=== PATIENT | male | born 1965 | race Caucasian/White ===

== ENCOUNTER 2019-11-25 08:56 | Emergency (ER) | payer BC, SELFPAY ==
--- NOTE | 2019-11-25 09:05 | ED.BACK ---
HPI - Back Pain/Injury General Chief Complaint: Back Pain/Injury Stated Complaint: Lower back strain Time Seen by Provider: 11/25/19 09:06 Source: patient and RN notes reviewed History of Present Illness HPI Narrative: Patient is a 54-year-old male who presents the urgent care with complaints of left-sided low back pain. Patient states that getting up from laying down or from sit to stand exacerbates the pain. Patient states that this past Tuesday he was walking his dog up the patio steps and noticed a slight tension and pull into the left low back. Patient states that since then he has not been able to get very comfortable. Patient states he has been taking ibuprofen with minimal relief. Also reports of using a heating pad which does help some. Patient denies of any known fall, trauma, past injury of the low back. No other acute complaints. Denies of any urinary issues. No acute distress noted. Patient aware of the plan of care. Some parts of this dictation were generated by voice recognition software and may contain typographical and/or grammatical inaccuracies. Related Data Home Medications Medication Instructions Recorded Confirmed atorvastatin [Lipitor] 40 mg PO HS 11/25/19 11/25/19 famotidine [Pepcid] 20 mg PO DAILY 11/25/19 11/25/19 insulin glargine [Lantus U-100 25 unit SUBCUT BID 11/25/19 11/25/19 Insulin] insulin lispro [Humalog U-100 15 unit SUBCUT TID 11/25/19 11/25/19 Insulin] lisinopril 10 mg PO BID 11/25/19 11/25/19 pramlintide [SymlinPen 120] 15 mcg SUBCUT ONCE 11/25/19 11/25/19 Allergies Allergy/AdvReac Type Severity Reaction Status Date / Time No Known Allergies Allergy Verified 11/25/19 09:09 Review of Systems Review of Systems: Narrative: CONSTITUTIONAL: Denies fever, chills, or sweats. EYES: Denies visual changes, redness, or discharge. ENT: Denies rhinorrhea, congestion, sore throat, or otalgia. CARDIOVASCULAR: Denies chest pain, palpitations, or edema. RESPIRATORY: Denies cough or dyspnea. GASTROINTESTINAL: Denies abdominal pain, nausea, vomiting, or diarrhea. GENITOURINARY: Denies dysuria or hematuria. SKIN: Denies rash or itching. MUSCULOSKELETAL: Reports of left low back pain radiating down the left leg NEUROLOGIC: Denies headache, numbness, or weakness. All other systems reviewed are negative, except as documented in HPI. PMFSH Comments At the time of my signature, I reviewed and agree with the nursing past medical, surgical, social, and family history. There is no relevant family history pertinent to the patient complaint. Exam Narrative: Exam Narrative: GENERAL: This is a well-nourished, well-developed patient, in no apparent distress. HEAD: normocephalic, atraumatic. EYES: PERRL. Sclera clear/white. Vision is grossly intact. EARS: External ears normal NOSE: External nose normal with no obvious nasal discharge, nares without redness, no rhinorrhea. THROAT: Mucous membranes moist NECK: Neck supple SKIN: warm, intact with no suspicious lesions or rash, good texture and turgor. NEURO: awake, alert, and oriented to person, place and time. There were no obvious focal neurologic abnormalities. EXTREMITIES: No clubbing, cyanosis, or edema. BACK: Mild to moderate left lumbar tenderness with positive left SLE. No crepitus Course Vital Signs Vital signs: Vital Signs Temperature 97.0 F L 11/25/19 09:06 Pulse Rate 84 11/25/19 09:06 Respiratory Rate 16 11/25/19 09:06 Blood Pressure 150/76 H 11/25/19 09:06 Pulse Oximetry 99 11/25/19 09:06 Temperature 97.0 F L 11/25/19 09:06 Pulse Rate 84 11/25/19 09:06 Respiratory Rate 16 11/25/19 09:06 Blood Pressure 150/76 H 11/25/19 09:06 Pulse Oximetry 99 11/25/19 09:06 Reviewed-patient is informed that they may have pre-hypertension or hypertension based on a blood pressure reading in the department. I recommend the patient call the primary care provider listed on their discharge instructions or a physician of
[2019-11-25 09:06] VITALS: BP 150/76; PULSE 84; RESP 16; TEMP 36.1; O2SAT 99
== END 2019-11-25 09:30 | disposition home or self-care (01) ==
PROVIDERS: Emergency Provider Nurse Practitioner Family
DX: M54.32 Sciatica, left side (principal); S39.012A Strain of muscle, fascia and tendon of lower back, initial encounter; X58.XXXA Exposure to other specified factors, initial encounter; E78.00 Pure hypercholesterolemia, unspecified; I10 Essential (primary) hypertension; K21.9 Gastro-esophageal reflux disease without esophagitis
CPT/HCPCS: 99213; G0463

== ENCOUNTER 2020-01-09 15:17 | Emergency (ER) | payer BC, SELFPAY ==
[2020-01-09 15:46] VITALS: BP 124/72; PULSE 88; RESP 16; TEMP 36.5; O2SAT 98
--- NOTE | 2020-01-09 15:54 | ED.GENADULT ---
HPI - General Adult General Chief complaint: Unspecified Stated complaint: Left jaw pain Time Seen by Provider: 01/09/20 15:54 Source: patient and RN notes reviewed Mode of arrival: ambulatory Limitations: no limitations History of Present Illness HPI narrative: 54 year old male who presents to [facility] with complaints of left jaw pain which radiates into his left ear and his temporal head region. Patient states that he gets these symptoms at least twice a year and feels also like his teeth and jaw are out of line and has some painful popping of his left jaw. Patient states that he has seen a TMJ specialist in [facility] in the past with no specific findings. Patient denies any trismus, able to open mouth fully on exam, no difficulty with dental pain or caries, no difficulty with swallowing, no Aldair angina or swelling of face noted. Patient denies any visual changes, no burning pain or any blistering lesions or rash, patient has strong bilateral temporal artery pulses. He denies any chest pain, pressure, nausea or vomiting diaphoresis or pain to left arm or back. Patient does admit to some sinus congestion and feeling stuffed up especially on the left maxillary area, has long history of Afrin nasal spray use. MD complaint: left jaw pain Onset (ago): week(s) (1) Location: head (left jaw) Severity: moderate Severity scale (1-10): 6 Quality: aching Pain Consistency: intermittent Relieving factors: none Exacerbating factors: none Associated symptoms: other (pain radiates to left ear and left temporal area) Treatments prior to arrival: NSAID Related Data Home Medications Medication Instructions Recorded Confirmed atorvastatin [Lipitor] 40 mg PO HS 11/25/19 01/09/20 dvmrmbyswg-eadljnrfzy-czv-cod 1 cap PO DAILY PRN 11/25/19 01/09/20 famotidine [Pepcid] 20 mg PO DAILY 11/25/19 01/09/20 insulin glargine [Lantus U-100 25 unit SUBCUT BID 11/25/19 01/09/20 Insulin] insulin lispro [Humalog U-100 15 unit SUBCUT TID 11/25/19 01/09/20 Insulin] lisinopril 10 mg PO BID 11/25/19 01/09/20 pramlintide [SymlinPen 120] 15 mcg SUBCUT ONCE 11/25/19 01/09/20 empagliflozin [Jardiance] 10 mg PO DAILY 01/09/20 01/09/20 Allergies Allergy/AdvReac Type Severity Reaction Status Date / Time No Known Allergies Allergy Verified 01/09/20 15:52 Review of Systems Review of Systems: Narrative: CONSTITUTIONAL: Denies fever, chills, or sweats. EYES: Denies visual changes, redness, or discharge. ENT: Denies rhinorrhea,positive sinus congestion,no sore throat, some left ear otalgia. CARDIOVASCULAR: Denies chest pain, palpitations, or edema. RESPIRATORY: Denies cough or dyspnea. GASTROINTESTINAL: Denies abdominal pain, nausea, vomiting, or diarrhea. GENITOURINARY: Denies dysuria or hematuria. SKIN: Denies rash or itching. MUSCULOSKELETAL: Denies back pain, joint pain, or myalgia. NEUROLOGIC: temporal headache, no numbness, or weakness. PSYCHIATRIC: Denies anxiety or depression. All systems reviewed & are unremarkable except as noted in HPI and below PMFSH Past Medical History Medical History (Updated 01/10/20 @ 00:00 by [facility]) Diabetes Hyperlipidemia Hypertension Migraines Surgical History Surgical History (Updated 01/09/20 @ 16:20 by Sole Stevens NP) H/O shoulder surgery Hx of cholecystectomy Family History Family History (Updated 01/09/20 @ 16:21 by Sole Stevens NP) Father Diabetes mellitus Mother Diabetes mellitus Social History Social History (Updated 01/09/20 @ 16:21 by Sole Stevens NP) Smoking status: Never smoker Alcohol intake: current Alcohol use details: rare Substance use: never Living arrangements: with family Gender identity (if verbalized by the patient): Male Comments At time of signature, agree with nursing past medical, surgical, social and family history. There is no relevant family history pertinent to the presenting complaint Exam Narrative: Exam Narrative: G
== END 2020-01-09 16:41 | disposition home or self-care (01) ==
PROVIDERS: Emergency Provider Registered Nurse
DX: R68.84 Jaw pain (principal); E11.9 Type 2 diabetes mellitus without complications; E78.5 Hyperlipidemia, unspecified; I10 Essential (primary) hypertension; K21.9 Gastro-esophageal reflux disease without esophagitis
CPT/HCPCS: 99213; G0463

== ENCOUNTER 2023-05-02 00:30 | Day surgery (SDC) | payer BC, SELFPAY ==
[2023-04-13 09:55] VITALS: BMI 26.4
--- NOTE | 2023-04-29 12:16 | SUR.PREOP ---
Patient called regarding upcoming procedure. Reviewed preop instructions, appointment times, and procedure prep.
--- NOTE | 2023-04-29 14:15 | PM.HPGS ---
History of Present Illness History of Present Illness Consent: Risks, benefits, and alternatives have been discussed and questions answered. Patient agrees to proceed with procedure. Chief complaint: neoplasm screening Narrative: Foreign Yang is a 58 year old male A long history of acid reflux disease, fatty liver, diabetes mellitus and prior cholecystectomy who has a history of polyps. Last colonoscopy was in 2018 or 2019. He had recently received a letter stating that it was time for follow-up colonoscopy . 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 Review of Systems Review of Systems: All systems reviewed & are unremarkable except as noted in HPI and below PMFSH Past Medical History Medical History Diabetes Fatty liver GERD (gastroesophageal reflux disease) Hyperlipidemia Hypertension Left shoulder pain Migraines Tendonitis of left rotator cuff Surgical History Surgical History H/O shoulder surgery Hx of cholecystectomy Family History Family History Father Diabetes mellitus Mother Diabetes mellitus Unknown Hypertension Heart disease Neuropathy Arthritis Cerebrovascular accident High cholesterol Social History Social History Social History: caffeine use Smoking status: Never smoker Alcohol intake: current Alcohol use details: rare Substance use: never Substance use type: does not use Living arrangements: with family Occupation/Education: occupation 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- [employer] Gender identity (if verbalized by the patient): Male Spiritual care concerns: No Meds Home Medications and Allergies Home Medications Medication Instructions Recorded Confirmed Type atorvastatin 40 mg tablet (Lipitor) 40 mg PO HS 11/25/19 05/02/23 History butalbital 50 mg-acetaminophen 325 1 cap PO DAILY PRN Headache 11/25/19 05/02/23 History mg-caffeine 40 mg-codeine 30 mg cap famotidine 20 mg tablet (Pepcid) 20 mg PO DAILY 11/25/19 05/02/23 History insulin glargine 100 unit/mL 25 unit subcut BID 11/25/19 05/02/23 History subcutaneous solution (Lantus U-100 Insulin) insulin lispro 100 unit/mL 15 unit subcut TID 11/25/19 05/02/23 History subcutaneous cartridge (Humalog U-100 Insulin) lisinopril 10 mg tablet 10 mg PO BID 11/25/19 05/02/23 History metformin 500 mg tablet 1,000 mg PO BID 02/22/23 05/02/23 History alprazolam 0.5 mg tablet 0.5 mg PO DAILY PRN Anxiety 04/04/23 05/02/23 History ferrous sulfate 325 mg (65 mg 325 mg PO DAILY 04/04/23 05/02/23 History iron) tablet tamsulosin 0.4 mg capsule 0.4 mg PO DAILY 04/04/23 05/02/23 History venlafaxine 225 mg tablet,extended 225 mg PO DAILY 04/04/23 05/02/23 History release 24 hr vctamoz-mlipgccydpjpz-wvybchwo 250 1 tablet PO Q4-6H PRN Migraine 04/13/23 05/02/23 History mg-250 mg-65 mg tablet (Excedrin Headache Migraine) mazuojy-envufukqt-dkyo 333 mg-133 1 tablet PO DAILY 04/13/23 05/02/23 History mg-8.3 mg tablet empagliflozin 25 mg tablet 25 mg PO DAILY 04/13/23 05/02/23 History (Jardiance) omega-3 fatty acids-vitamin E 1 cap PO BID 04/13/23 05/02/23 History 1,000 mg capsule polyethylene glycol 3350 17 17 g PO DAILY 04/13/23 05/02/23 History gram/dose oral powder (Miralax) sumatriptan succinate 100 mg tablet 100 mg PO BID PRN Migraine Headache 04/13/23 05/02/23 History vitamin B complex 1 tablet PO DAILY 04/13/23 05/02/23 History Allergies Allergy/AdvReac Type Severity Reaction Status Date / Time No Known Allergies Allergy Verified 05/02/23 06:27 Exam Resp: Auscultation: clear to auscultation bilaterally Cardio: Rate: regular rate Rhythm: regular rhythm GI: GI Palp: Yes Soft to palpation and No Tenderness to palpation prese
[2023-05-02 06:37] VITALS: BP 127/81; PULSE 87; RESP 18; TEMP 36.1; O2SAT 99
[2023-05-02] MEDS: LACTATED RINGERS 1,000 ML 150 ML IV CONT (06:47)
[2023-05-02 06:49] LABS: Glucose Point of Care 165 mg/dl (65-105)
--- NOTE | 2023-05-02 07:21 | WPDANESEPPF ---
Anes - Initial Pre Proc Eval Procedure: Operation Date: 05/02/23 07:30 Proposed Procedures p Screening Colonoscopy - Moe Izquierdo MD Date/Time: 05/02/23 07:21 Surgeon: Moe Izquierdo MD Pre Op Diagnosis: neoplasm screening Patient Data Age: 58 Gender: M Height: 1.83 m Weight: 90.9 kg Last Vital Signs Temp 96.9 F L 05/02/23 06:37 Pulse 87 05/02/23 06:37 Resp 18 05/02/23 06:37 BP 127/81 05/02/23 06:37 Pulse Ox 99 05/02/23 06:37 O2 Del Method Room Air 05/02/23 06:37 Allergies Allergy/AdvReac Type Severity Reaction Status Date / Time No Known Allergies Allergy Verified 05/02/23 06:27 Home Medications Medication Instructions Recorded Confirmed Type atorvastatin 40 mg tablet (Lipitor) 40 mg PO HS 11/25/19 05/02/23 History butalbital 50 mg-acetaminophen 325 1 cap PO DAILY PRN Headache 11/25/19 05/02/23 History mg-caffeine 40 mg-codeine 30 mg cap famotidine 20 mg tablet (Pepcid) 20 mg PO DAILY 11/25/19 05/02/23 History insulin glargine 100 unit/mL 25 unit subcut BID 11/25/19 05/02/23 History subcutaneous solution (Lantus U-100 Insulin) insulin lispro 100 unit/mL 15 unit subcut TID 11/25/19 05/02/23 History subcutaneous cartridge (Humalog U-100 Insulin) lisinopril 10 mg tablet 10 mg PO BID 11/25/19 05/02/23 History metformin 500 mg tablet 1,000 mg PO BID 02/22/23 05/02/23 History alprazolam 0.5 mg tablet 0.5 mg PO DAILY PRN Anxiety 04/04/23 05/02/23 History ferrous sulfate 325 mg (65 mg 325 mg PO DAILY 04/04/23 05/02/23 History iron) tablet tamsulosin 0.4 mg capsule 0.4 mg PO DAILY 04/04/23 05/02/23 History venlafaxine 225 mg tablet,extended 225 mg PO DAILY 04/04/23 05/02/23 History release 24 hr ikjwxws-ficwngfekuwog-xinfkeyk 250 1 tablet PO Q4-6H PRN Migraine 04/13/23 05/02/23 History mg-250 mg-65 mg tablet (Excedrin Headache Migraine) tnbqkzg-gogtosvfn-oudb 333 mg-133 1 tablet PO DAILY 04/13/23 05/02/23 History mg-8.3 mg tablet empagliflozin 25 mg tablet 25 mg PO DAILY 04/13/23 05/02/23 History (Jardiance) omega-3 fatty acids-vitamin E 1 cap PO BID 04/13/23 05/02/23 History 1,000 mg capsule polyethylene glycol 3350 17 17 g PO DAILY 04/13/23 05/02/23 History gram/dose oral powder (Miralax) sumatriptan succinate 100 mg tablet 100 mg PO BID PRN Migraine Headache 04/13/23 05/02/23 History vitamin B complex 1 tablet PO DAILY 04/13/23 05/02/23 History Laboratory Tests 05/02/23 06:45 POC Capillary Glucose 165 H mg/dl (65-105) Patient hx anesthesia problems: none Family hx anesthesia problems: none Results Review: All pre-operative results and documents have been reviewed as part of the pre-operative evaluation. [facility] Past Medical History Medical History Diabetes Fatty liver GERD (gastroesophageal reflux disease) Hyperlipidemia Hypertension Left shoulder pain Migraines Tendonitis of left rotator cuff Surgical History Surgical History H/O shoulder surgery Hx of cholecystectomy Family History Family History Father Diabetes mellitus Mother Diabetes mellitus Unknown Hypertension Heart disease Neuropathy Arthritis Cerebrovascular accident High cholesterol Social History Social History Social History: caffeine use Smoking status: Never smoker Alcohol intake: current Alcohol use details: rare Substance use: never Substance use type: does not use Living arrangements: with family Occupation/Education: occupation 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
[2023-05-02 07:52] VITALS: BP 109/76; PULSE 87; RESP 20; O2SAT 95
[2023-05-02 08:02] VITALS: BP 115/80; PULSE 76; RESP 20; O2SAT 96
[2023-05-02 08:08] LABS: Glucose Point of Care 127 mg/dl (65-105)
[2023-05-02 08:12] VITALS: BP 128/85; PULSE 74; RESP 20; O2SAT 98
== END 2023-05-02 08:17 | disposition home or self-care (01) ==
PROVIDERS: PCP Internal Medicine; Visit Provider Internal Medicine Gastroenterology
PROC: 0DJD8ZZ Inspection of Lower Intestinal Tract, Via Natural or Artificial Opening Endoscopic (ICD-10-PCS; CPT 45378; principal; 2023-05-02 07:30)
DX: Z12.11 Encounter for screening for malignant neoplasm of colon (principal); I10 Essential (primary) hypertension; E11.9 Type 2 diabetes mellitus without complications; K21.9 Gastro-esophageal reflux disease without esophagitis; E78.5 Hyperlipidemia, unspecified; G43.909 Migraine, unspecified, not intractable, without status migrainosus; Z79.4 Long term (current) use of insulin; Z79.84 Long term (current) use of oral hypoglycemic drugs; Z79.82 Long term (current) use of aspirin; Z98.890 Other specified postprocedural states; Z90.49 Acquired absence of other specified parts of digestive tract; Z86.010 Personal history of colon polyps; Z82.49 Family history of ischemic heart disease and other diseases of the circulatory system
CPT/HCPCS: 45378; 82948; J2704; J7120

== ENCOUNTER 2023-06-14 08:06 | Emergency (ER) | payer BC, SELFPAY ==
[2023-06-14 08:10] VITALS: BP 131/74; PULSE 85; RESP 20; TEMP 36.8; O2SAT 100
--- NOTE | 2023-06-14 08:11 | ED.URI ---
HPI - URI/Sore Throat General Chief Complaint: Upper Respiratory Infection Stated Complaint: sore throat Time Seen by Provider: 06/14/23 08:15 Source: patient, RN notes reviewed and old records reviewed Mode of arrival: ambulatory Limitations: no limitations History of Present Illness HPI Narrative: 58 year old male who presents to [facility] with complaints of sore throat which is lingering for 5 days with some low grade fevers noted intermittently and sweats. Patient reports that he has taken Ibuprofen and also has used Flonase nasal spray. Patient reports that he has felt stuffy and has noted some sinus drainage, sinus pressure. He states that he has a migraine also this morning.Patient reports no cough or any shortness of breath, no tachypnea noted or any retractions. MD elicited complaint: sore throat, rhinorrhea and nasal congestion Pertinent past history: sinusitis, seasonal allergies and other (migraines) Onset (ago): day(s) (5) Consistency: constant Pain scale (0-10): 3 Description of mucous: clear Able to tolerate fluids by mouth: Yes Treatments prior to arrival: ibuprofen and other (flonase) Related Data Home Medications Medication Instructions Recorded Confirmed atorvastatin 40 mg tablet (Lipitor) 40 mg PO HS 11/25/19 06/14/23 butalbital 50 mg-acetaminophen 325 1 cap PO DAILY PRN Headache 11/25/19 06/14/23 mg-caffeine 40 mg-codeine 30 mg cap famotidine 20 mg tablet (Pepcid) 20 mg PO DAILY 11/25/19 06/14/23 insulin glargine 100 unit/mL 25 unit subcut BID 11/25/19 06/14/23 subcutaneous solution (Lantus U-100 Insulin) insulin lispro 100 unit/mL 15 unit subcut TID 11/25/19 06/14/23 subcutaneous cartridge (Humalog U-100 Insulin) lisinopril 10 mg tablet 10 mg PO BID 11/25/19 06/14/23 metformin 500 mg tablet 1,000 mg PO BID 02/22/23 06/14/23 alprazolam 0.5 mg tablet 0.5 mg PO DAILY PRN Anxiety 04/04/23 06/14/23 ferrous sulfate 325 mg (65 mg 325 mg PO DAILY 04/04/23 06/14/23 iron) tablet tamsulosin 0.4 mg capsule 0.4 mg PO DAILY 04/04/23 06/14/23 venlafaxine 225 mg tablet,extended 225 mg PO DAILY 04/04/23 06/14/23 release 24 hr jcnirpr-bcpewcxuxkobw-qgmxkmcj 250 1 tablet PO Q4-6H PRN Migraine 04/13/23 06/14/23 mg-250 mg-65 mg tablet (Excedrin Headache Migraine) hwwguor-hzwzxjsnj-jrkf 333 mg-133 1 tablet PO DAILY 04/13/23 06/14/23 mg-8.3 mg tablet empagliflozin 25 mg tablet 25 mg PO DAILY 04/13/23 06/14/23 (Jardiance) polyethylene glycol 3350 17 17 g PO DAILY 04/13/23 06/14/23 gram/dose oral powder (Miralax) sumatriptan succinate 100 mg tablet 100 mg PO BID PRN Migraine Headache 04/13/23 06/14/23 vitamin B complex 1 tablet PO DAILY 04/13/23 06/14/23 omega-3 fatty acids-fish oil 300 1 cap PO DAILY 06/14/23 06/14/23 mg-1,000 mg capsule Allergies Allergy/AdvReac Type Severity Reaction Status Date / Time No Known Allergies Allergy Verified 06/14/23 08:17 Review of Systems Review of Systems: CONSTITUTIONAL: Reports malaise, chills, sweats, or fever. EYES: Denies visual changes, redness, or discharge. ENT: Reports rhinorrhea, congestion, sinus pain,no otalgia and positive sore throat. CARDIOVASCULAR: Denies chest pain, palpitations, or edema. RESPIRATORY: Reports no cough.? Denies dyspnea. GASTROINTESTINAL: Denies abdominal pain, nausea, vomiting, diarrhea SKIN: Denies rash or itching. MUSCULOSKELETAL: Denies myalgia. NEUROLOGIC: Reports headache. All systems reviewed & are unremarkable except as noted in HPI and below PMFSH Past Medical History Medical History Diabetes Fatty liver GERD (gastroesophageal reflux disease) Hyperlipidemia Hypertension Left shoulder pain Migraines Tendonitis of left rotator cuff Surgical History Surgical History H/O shoulder surgery Hx of cholecystectomy Family History Family History (Reviewed 06/14/23 @ 08:14 by
== END 2023-06-14 08:37 | disposition home or self-care (01) ==
PROVIDERS: Emergency Provider Registered Nurse; PCP Internal Medicine
DX: J32.9 Chronic sinusitis, unspecified (principal); J02.9 Acute pharyngitis, unspecified; E11.9 Type 2 diabetes mellitus without complications; Z79.4 Long term (current) use of insulin; Z79.84 Long term (current) use of oral hypoglycemic drugs; K76.0 Fatty (change of) liver, not elsewhere classified; K21.9 Gastro-esophageal reflux disease without esophagitis; E78.5 Hyperlipidemia, unspecified; I10 Essential (primary) hypertension
CPT/HCPCS: 87081; 87880; 99213; G0463

== ENCOUNTER 2024-06-19 02:06 | Day surgery (SDC) | payer BC, SELFPAY ==
[2024-06-08 13:40] VITALS: BMI 25.1
--- OUTSIDE RECORDS SUMMARY | 2024-06-19 02:12 | XMS_ITS | Encounter Summary ---
Author Organization [facility] Address 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
--- OUTSIDE RECORDS SUMMARY | 2024-06-19 02:12 | XMS_ITS | Encounter Summary ---
Author Organization [facility] Address [address] [place] [address] Care Team Providers Care Configuration Specialist Name Role Phone Satnam Liu DO Primary Care Provider Unav ailable Encounter Details Date Type Department Care Team (Late st Contact Info) Description 07/12/2005 Outpatient [facility] Primary Care - [address] [place] [address] Carmelo Sher MD [address] 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
--- OUTSIDE RECORDS SUMMARY | 2024-06-19 02:12 | XMS_ITS | Encounter Summary ---
Author Organization [facility] Address [address] [place] [address] Care Team Providers Care Sack Lifter Name Role Phone Satnam Liu DO Primary Care Provider Unav ailable Encounter Details Date Type Department Care Team (Late st Contact Info) Description 02/06/1999 Outpatient [facility] Humberto Siu Abdominal pain, unspecified site (Primary Dx) Social History Tobacco Use Types Packs/Day Years Used Date Smoking Tobacco: Never Assessed Sex and Gender Information Value Date Recorded Sex Assigned at Not on file Legal Sex Male 3:54 AM [employer] Gender Identity Not on file Sexual Orientation Not on file documented as of this encounter Plan of Treatment Not on file documented as of this encounter Visit Diagnoses Diagnosis Abdominal pain, unspecified site- Primary documented in this encounter Care Teams Sack Lifter Relationship Specialty Start Date End Date Satnam Liu DO PCP - General 02/12/15 documented as of this encounter
--- OUTSIDE RECORDS SUMMARY | 2024-06-19 02:12 | XMS_ITS | Encounter Summary ---
Author Organization [facility] Address 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
--- OUTSIDE RECORDS SUMMARY | 2024-06-19 02:12 | XMS_ITS | Encounter Summary ---
Author Organization [facility] Address [address] [place] [address] Care Team Providers Care Orthotist Or Prosthetist Name Role Phone Satnam Liu DO Primary Care Provider Unav ailable Encounter Details Date Type Department Care Team (Late st Contact Info) Description 11/18/1999 Outpatient [facility] Internal Medicine [facility] [address] [facility] [address] Layo Ramirez [place] [id number] Humberto Siu Social History Tobacco Use Types Packs/Day Years Used Date Smoking Tobacco: Never Assessed Sex and Gender Information Value Date Recorded Sex Assigned at Not on file Legal Sex Male 3:54 AM [employer] F[employer]ER [employer] Gender Identity Not on file Sexual Orientation Not on file documented as of this encounter Plan of Treatment Not on file documented as of this encounter Visit Diagnoses Not on filedocumented in this encounter Care Teams Orthotist Or Prosthetist Relationship Specialty Start Date End Date Satnam Liu DO PCP - General 02/12/15 documented as of this encounter
--- OUTSIDE RECORDS SUMMARY | 2024-06-19 02:12 | XMS_ITS | Encounter Summary ---
Author Organization [facility] Address [address] [place] [address] Care Team Providers Care Return To Vendor Name Role Phone Satnam Liu DO Primary Care Provider Unav ailable Encounter Details Date Type Department Care Team (Late st Contact Info) Description 12/03/2005 Outpatient Historical [facility] Primary Care - [address] [place] [address] Carmelo Sher MD [address] [facility] [address] [place], [place] [id number] Social History Tobacco Use Types Packs/Day Years Used Date Smoking Tobacco: Never Assessed Sex and Gender Information Value Date Recorded Sex Assigned at Not on file 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
--- OUTSIDE RECORDS SUMMARY | 2024-06-19 02:12 | XMS_ITS | Encounter Summary ---
Author Organization [facility] Address 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
--- OUTSIDE RECORDS SUMMARY | 2024-06-19 02:12 | XMS_ITS | Encounter Summary ---
Author Organization [facility] Address [address] [place] [address] Care Team Providers Care Aluminum Pourer Name Role Phone Satnam Liu DO Primary Care Provider Unav ailable Encounter Details Date Type Department Care Team (Late st Contact Info) Description 03/09/2005 Outpatient Historical [facility] Primary Care - [address] [place] [address] Carmelo Sher MD [address] [facility] [address] [place], [place] [id number] Social History Tobacco Use Types Packs/Day Years Used Date Smoking Tobacco: Never Assessed Sex and Gender Information Value Date Recorded Sex Assigned at Not on file 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
--- OUTSIDE RECORDS SUMMARY | 2024-06-19 02:12 | XMS_ITS | Encounter Summary ---
Author Organization [facility] Address 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
--- OUTSIDE RECORDS SUMMARY | 2024-06-19 02:12 | XMS_ITS | Encounter Summary ---
Author Organization [facility] [facility] Address 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
--- OUTSIDE RECORDS SUMMARY | 2024-06-19 02:12 | XMS_ITS | Clinical Summary ---
Author Organization [facility] Address [address] [place] [address] Care Team Providers Care Jet Aircraft Serv[employer] Name Role Phone Ciro Berger MD Primary Care Provider + Lydia Hairston MD Unavailable [phone] Cecil Jewell MD Unavailable [phone] Leidy Durán MD Unavailable [phone] David David MD Unavailable [phone] Nader Martínez MD Unavailable Allergies No known active allergies Medications b complex vitamins tablet daily. 011 Active acetaminophen-asp irin-caffeine (EXCEDRIN MIGRAINE) 250-250-65 mg per tablet Take 1 tablet by mouth every 6 (six) hours as needed Active blood-glucose meter,continuous (Dexcom G6 Dehydrating Press Operator) misc USE DIRECTED BY PRESCRIBER OR PACKAGE INSTRUCTIONS 1 each 3 020 Active insulin glargine (LANTUS, BASAGLAR, SEMGLEE) 100 unit/mL (3 mL) pen for injection Inject 50 Units under the skin 2 (two) times a day Active buPROPion (WELLBUTRIN) 75 mg tabletIndications :Depression with anxiety Take 1 tablet (75 mg total) by mouth 2 (two) times a day 180 tablet 4 024 2024 Active gabapentin (NEURONTIN) 300 mg capsuleIndication s:Tremor Take 1 capsule (300 mg total) by mouth 3 (three) times a day 270 capsule 4 024 2024 Active metFORMIN (GLUCOPHAGE) 500 mg tabletIndications :Type 2 diabetes mellitus with diabetic mononeuropathy, with long-term current use of insulin (HCC) Take 1 tablet (500 mg total) by mouth 2 (two) times a day with meals 180 tablet 1 024 2024 Active ALPRAZolam (XANAX) 0.5 mg tabletIndications :Depression with anxiety Take 1 tablet (0.5 mg total) by mouth daily as needed for anxiety 90 tablet 024 Active empagliflozin (Jardiance) 25 mg tabletIndications :Type 2 diabetes mellitus with complication (HCC) Take 1 tablet (25 mg total) by mouth daily 90 tablet 3 024 Active pen needle, diabetic (BD Ultra-Fine Short Pen Needle) 31 gauge x 5/16 needleIndications :Type 2 diabetes mellitus with complication (HCC) USE 4 TO 5 TIMES DAILY. 500 each 1 024 Active venlafaxine 225 mg tablet extended release 24hr 24 hr tablet Take 1 tablet (225 mg total) by mouth daily 90 tablet 3 024 Active blood-glucose sensor (Dexcom G6 Sensor) deviceIndications :Type 2 diabetes mellitus with complication (HCC) CHANGE EVERY 10 DAYS 9 each 025 Active blood-glucose transmitter (Dexcom G6 Transmitter) deviceIndications :Type 2 diabetes mellitus with complication (HCC) CHANGE EVERY 3 MONTHS 1 each 1 025 Active insulin lispro (HumaLOG, ADMELOG) 100 unit/mL pen for injectionIndicati ons:Type 2 diabetes mellitus with complication (HCC) INJECT 1 UNIT UNDER THE SKIN FOR EVERY 7GM CARB AT MEALS PLUS SLIDING SCALE. 2 UNITS FOR EVERY 50 POINTS ABOVE 150 NEEDED. MAX=80 UNITS/DAY 75 mL 1 025 Active atorvastatin (LIPITOR) 40 mg tabletIndications :Hyperlipidemia, unspecified hyperlipidemia type Take 1 tablet (40 mg total) by mouth daily 90 tablet 3 025 Active famotidine (PEPCID) 20 mg tabletIndications :Gastroesophageal reflux disease without esophagitis Take 1 tablet (20 mg total) by mouth 2 (two) times a day 180 tablet 3 025 Active tamsulosin (FLOMAX) 0.4 mg extended release capsuleIndication s:Lower urinary tract symptoms (LUTS) Take 1 capsule (0.4 mg total) by mouth daily 10 capsule 025 Active tamsulosin (FLOMAX) 0.4 mg extended release capsuleIndication s:Lower urinary tract symptoms (LUTS) TAKE ONE CAPSULE BY MOUTH DAILY 90 capsule 3 023 2024 Discontinued(R eorder) atorvastatin (LIPITOR) 40 mg tabletIndications :Hyperlipidemia, unspecified hyperlipidemia type TAKE 1 TABLET BY MOUTH DAILY 90 tablet 3 024 2024 Discontinued(R eorder) insulin lispro (HumaLOG) 100 unit/mL pen for injectionIndicati ons:Type 2 diabetes mellitus with complication (HCC) Inject 1 unit for every 7 grams of carbohydrate at meals plus sliding scale, 2 unit for every 50 points above BG of 150, as needed; Max daily dose 80 units. 75 mL 3 024 2024 Discontinued famotidine (PEPCID) 20 mg tabletIndications :Gastroesophageal reflux disease without esophagitis TAKE 1 TABLET BY MOUTH TWICE DAILY 180 tablet 3 024 2024 Discontinued(R eorder) tamsulosin (FLOMAX) 0.4 mg extended release capsuleIndication s:Lower urinary tract symptoms (LUTS) Take 1 capsule (0.4 mg total) by mouth daily 90 capsule 3 025 2024 Discontinued(R eorder) Active Problems Problem Noted Date Diagnosed Date Tremor 05/19/2023 Assessment & Plan (01/24/2024 12:29 PM FILLER IN): Dx essential tremor by neurology Self restarted gabapentin, notes tremor improvement Assessment & Plan (09/08/2023 4:56 PM CDT): Worsening for the last month He has been unable to schedule with neurology, referral placed MRI/MRA Neck pain 02/13/2022 Assessment & Plan (11/12/2022 1:54 PM CDT): Improved with Flexeril Lumbar radiculopathy 02/13/2022 Dupuytren contracture 09/18/2021 Colon polyp 09/17/2021 Leg cramps 02/13/2021 Chronic fatigue 02/04/2021 Assessment & Plan (02/04/2021 9:50 AM FILLER IN): -Most likely multifactorial, due to medications, depression. -Will repeat CBC and ferritin -Will check TFT, Vitamin D -Recommend he discuss sleep study with Dr. Berger at follow up next week. Multiple nevi 08/14/2020 Insulin long-term use 03/14/2020 Jaw pain 02/11/2020 Depression with anxiety 02/09/2020 Assessment & Plan (01/24/2024 12:18 PM FILLER IN): Mood has been stable Will refill bupropion Assessment & Plan (09/23/2023 12:54 PM CDT): Mood improving with impending snf Assessment & Plan (09/08/2023 4:51 PM CDT): PHQ: 7 improved from 10 Still has increased stress with work, but plans to retire in September. Again encourage therapy Requesting refill of xanax Assessment & Plan (06/21/2023 11:06 AM CDT): PHQ: 10, improved from 17 MARTHA: 13 Improved since started on Wellbutrin, increase dosage to 150 mg twice a day. Encouraged patient to establish care with therapy. Assessment & Plan (11/12/2022 1:53 PM CDT): Controlled on current therapy Needs refill of Xanax Lower urinary tract symptoms (LUTS) 02/07/2019 Assessment & Plan (11/12/2022 1:52 PM CDT): Improved Continue tamsulosin Fatty (change of) liver, not elsewhere classifie d 12/04/2018 Overview (12/04/2018): Fatty liver - BENJAMIN with h/o elevated LFTs. Followed by Dr. Durán (Added by TW Conv) Seasonal allergies 09/25/2018 Dizziness 11/17/2017 Assessment & Plan (09/23/2023 12:54 PM CDT): Greatly improved since stopping lisinopril Assessment & Plan (09/08/2023 4:53 PM CDT): EKG nl today' event monitor ordered +orthostatic BP; stop lisinopril and follow up in 1 month Continue to monitor at home BS are stable MRI/MRA ordered Referral to neurology Palpitations 11/17/2017 Chronic chest pain 11/17/2017 Elevated bilirubin 05/12/2017 Hypoglycemia 09/14/2016 Iron deficiency anemia 02/24/2016 Overview (11/16/2017): capsule endoscopy dr. durán 06/14 neg. seen by ranjeet 06/14 - follow up as needed Assessment & Plan (02/04/2021 9:48 AM FILLER IN): -Taking daily iron supplement -Will repeat CBC and ferritin Proteinuria 08/26/2014 Chronic sinusitis 08/26/2014 Diabetic peripheral neuropathy 08/24/2014 Assessment & Plan (11/12/2022 1:55 PM CDT): Symptoms remained stable Continues gabapentin but has cut back. Assessment & Plan (08/05/2021 8:21 AM CDT): -Taking gabapentin -Following with podiatry Assessment & Plan (01/13/2021 8:59 AM FILLER IN): Stable symptoms. Exam as above. B12, TSH normal. Discussed minimizing neuropathy risk factors. Continue gabapentin 600/600/600 Start compression stockings (15-20mmHg) during daytime Gastroesophageal reflux disease 08/24/2014 Overview (11/16/2017): EGD 03/16 Dr. Durán normal Hypertension 08/24/2014 Overview (11/16/2017): ekg nl 11/14 Assessment & Plan (01/24/2024 12:34 PM FILLER IN): BP elevated today Notes he ran up the stairs and had a frustrating drive to the office today Home pressures 130-140/80 He will continue to check BP at home and follow up with readings in 2 weeks. Assessment & Plan (09/23/2023 12:54 PM CDT): BP is at home 130/80 or less Continue to monitor BP and follow-up if consistently elevated Assessment & Plan (09/08/2023 4:54 PM CDT): +orthostatic BP; stop lisinopril Continue to monitor at home and follow up in 1 month Assessment & Plan (08/05/2021 8:19 AM CDT): -BP today is 127/83 -Will continue same antihypertensive medications at this time. Assessment & Plan (02/04/2021 9:47 AM FILLER IN): -BP today is 113/78 -Will continue same antihypertensive medications at this time. Irritable bowel syndrome 10/06/2012 Overview (08/17/2017): IBS (irritable bowel syndrome) Hyperlipidemia 03/11/2010 Assessment & Plan (08/02/2021 12:59 PM CDT): -Last labs January 2021: TC 150, trig 158, HDL 56, LDL 62 -Will continue statin as it is being tolerated without side effects Assessment & Plan (02/04/2021 9:47 AM FILLER IN): -Last LDL was 71 in January 2020 -Will continue statin as it is being tolerated without side effects Migraine headache 03/11/2010 Assessment & Plan (01/13/2021 8:58 AM FILLER IN): Current headache days: 02/26 Current moderate to severe migraine days: 06/27 Continue venlafaxine Continue sumatriptan; discussed minimizing due to vasoactive property Continue Fiorinal; ideally will be using no more than 3x per week; will clarify usage frequency at next f/u Start ubrogepant; sample provided Consider galcanezumab Type 2 diabetes mellitus wit h diabetic mononeuropathy, with long-term current use of insulin 03/11/2010 Assessment & Plan (01/24/2024 12:33 PM FILLER IN): 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 He is trying to get established with a provider in [place]. Will refill metformin Assessment & Plan (09/23/2023 12:58 PM CDT): Continue current management Assessment & Plan (11/12/2022 1:52 PM CDT): Blood sugars stable with occasional spikes Continue current treatment as managed by Endocrine Assessment & Plan (08/05/2021 8:21 AM CDT): -Currently taking MDI, Symlin and oral agents. Also using Dexcom -A1C on 08/05/21 was 6.1% -Dexcom download indicates stable glucose pattern with minimal excursions after meals. Time in range is 85%. Will continue same medication regimen for now. -Discussed diet and activity modifications. -Advised to call with any concerns/complaints regarding glucose readings -Eye exam is up to date Assessment & Plan (02/04/2021 9:47 AM FILLER IN): -Currently taking MDI, Symlin and oral agents. Also using Dexcom -A1C on 02/04/21 was 5.8% -Dexcom download indicates flat pattern, with 88.7% time in range. Will continue same medication regimen. -Discussed diet and activity modifications. -Advised to call with any concerns/complaints regarding glucose readings -Eye exam is up to date Encounters Date Type Department Care Team Description 06/04/[address] [phone] Ciro Berger MD med rf [facility]ARA 05/31/[address] [phone] Ciro Berger MD Med Refill 05/29/2024 1:00 PM CDT Office Visit [facility] [address] [place] [phone] Ej Piña MD Migraine without aura and without status migrainosus, not intractable (Primary Dx); Postural dizziness with presyncope; Essential tremor; Diabetic polyneuropathy associated with diabetes mellitus due to underlying condition (HCC) from Last 3 Months Immunizations Immunization Administration Dates Next Due COVID-19 mRNA ([employer] 0.3 m L (30 mcg) vaccine (12 years and up) 12/11/2022,11/28/2022 Influenza, Quadrivalent, Sona l Culture-based MDCK, Preservative Free, Antibiotic Free, Intramuscular 12/11/2022,12/09/2021 Influenza, Quadrivalent, Rec ombinant, Egg Free, Preservative Free, Intramuscular 11/17/2017 Influenza, Quadrivalent, Spl it, Preservative Free, Intramuscular 01/07/2021,12/27/2019 Influenza, Trivalent, Cell C ulture-based MDCK, Preservative Free, Antibiotic Free, Intramuscular 11/02/2023 Influenza, Trivalent, High D ose, Split, Preservative Free, Intramuscular 01/09/2013 Influenza, Trivalent, IM (MDV) 11/28/2022,2012 Influenza, Trivalent, Preser vative Free, Intramuscular 02/27/2199 Pfizer SARS-CoV-2 Monovalent Vaccination (12+ Yrs) PURPLE 04/28/2021,09/05/2020,08/14/2020 Pfizer Sars-Cov-2 Bivalent V accination (12+ YRS) 12/29/2021 Pneumococcal Conjugate Pcv20 12/30/2021 Pneumococcal Polysaccharide PPV23 2013, Sars-cov-2 Covid-19 Mrna, Bi valent, Original/omicron Ba.1 11/02/2023 TD Preservative Free 2013 Tdap 11/15/2013 ZOSTER Recombinant 02/01/2018 Surgical History Surgery Date Site/Laterality Comments CHOLECYSTECTOMY Gallbladder surgery SHOULDER SURGERY Shoulder Surgery - (Added by TW Conv) Medical History Medical History Date Comments Personal history of other sp ecified conditions History of chest pain - Nucl ear stress 09/10 neg with normal LVF. (Added by TW Conv) Male erectile dysfunction Erecti le dysfunction - (Added by TW Conv) Peripheral vascular disease PAD (peripheral artery disease) - ABIs 09/11 neg (Added by TW Conv) Fatty (change of) liver, not elsewhere classified Fatty liver - BENJAMIN with h/o elevated LFTs. Followed by Dr. Durán (Added by TW Conv) Other constipation Chronic const ipation - Anal fissure s/o surgical repair. C-scope < 10 years was normal (Added by TW Conv) Other specified postprocedural states H/O colonoscopy - Dr. Durán 03/16 - one polyp. Repeat in 5 years (Added by TW Conv) Testicular hypofunction Androgen deficiency - Prior on treatment but did not see much difference. (Added by TW Conv) Other microscopic hematuria Micr oscopic hematuria - trace 05/14. resolved (Added by TW Conv) Personal history of other di seases of the nervous system and sense organs History of hearing los s - secondary to cerumen impaction 02/13 (Added by TW Conv) Type 2 diabetes mellitus wit h hypoglycemia without coma (HCC) Hypoglycemia associate d with diabetes - (Added by TW Conv) Family History Medical History Relation Name Comments Cancer Brother Cancer - (Added by TW Conv) Heart attack Father Myocardial infa rction; Cause of : Myocardial infarction Arthritis Mother Arthritis; Prostate cancer Mother's Brother Cancer Other 1 Family Hx Cancer; Diabetes Other 1 Family Hx Diabetes mellit us; Heart attack Other 1 Family Hx Myocardial infa rction; before age 60 Hypertension Other 1 Family Hx Hypertension; Stroke Other 1 Family Hx Stroke; Before age 60 Cancer Other 6 Cancer - (Added by TW Conv) Colon cancer Neg Hx Relation Name Status Comments Brother Father (Age 67) Mother Alive Mother's Brother Other 1 Family Hx Alive Other 2 Family Hx Alive Other 3 Family Hx Alive Other 4 Family Hx Alive Other 5 Family Hx Alive Other 6 Social History Tobacco Use Types Packs/Day Years Used Date Smoking Tobacco: Never Smokeless Tobacco: Never Tobacco Cessation:Counseling Given: Not Answered Alcohol Use Standard Drinks/Week Comments Yes 0 (1 standard drink = 0.6 oz pur e alcohol) rare PHQ-2 Answer Date Recorded PHQ-2 Total Score 2 09/08/2023 PHQ-9 Answer Date Recorded PHQ-9 Total Score 7 09/08/2023 Sex and Gender Information Value Date Recorded Sex Assigned at Not on file Legal Sex Male 11:49 PM FILLER IN Gender Identity Male 08/24/2019 8:41 AM CDT Sexual Orientation Straight 08/24/2019 8: 41 AM CDT Obstetrics History Last Filed Vital Signs Vital Sign Reading Time Taken Comments Blood Pressure 120/78 05/29/2024 12:52 PM CDT Pulse 73 05/29/2024 12:52 PM CDT Temperature 36.8 C (98.3 F) 08/19/2023 7:57 AM CDT Respiratory Rate 20 05/19/2023 11:16 AM CDT Oxygen Saturation 97% 05/29/2024 12:52 PM CDT Inhaled Oxygen Concentration - - Weight 92.1 kg (203 lb) 05/29/2024 12:52 PM CDT Height 182.9 cm (6' 0.01 ) 05/29/2024 12:52 PM C DT Body Mass Index 27.53 05/29/2024 12:52 PM CDT Plan of Treatment Health Maintenance Due Date Last Done Comments Hepatitis B Screening 1983 Zoster Vaccine (2 of 2) 03/29/2018 02/01/2018 Foot Exam 08/29/2023 08/28/2022, 04/01, 08/28/2021, Additional history exists DTaP/Tdap/Td Vaccine (2 - Td or Tdap) 11/16/2023 11/15/2013, 2013 Dilated Eye Exam 11/29/2023 11/28/2022, 02/2021, 11/28/2020, Additional history exists Covid-19 Vaccine (2023- 5 season) 2023 11/02/2023, 12/11/2022, 11/28/2022, Additional history exists Albumin Creatinine Ratio, Urine 02/10/2024 02/09/2023, 02/24/2022, 02/13/2021, Additional history exists Lipid Panel 02/10/2024 02/09/2023, 01/29, 02/13/2021, Additional history exists Hemoglobin A1C 02/18/2024 08/19/2023, 04/29, 02/09/2023, Additional history exists Regular Well Visit/Exam 05/18/2024, 05/19/2023, 02/15/2022, Additional history exists Depression Screening 09/07/2024 09/08/2023, 09/08/2023, 06/21/2023, Additional history exists eGFR 09/07/2024 09/08/2023, 01/28, 02/24/2022, Additional history exists Prostate Cancer Screening-PSA 02/09/2025, 02/24/2022, 02/13/2021, Additional history exists Colon Cancer Screening-Colonoscopy 04/28/2028 04/29/2023, 02/29/2016 Influenza Vaccine Completed 02/27/2199, , 12/11/2022, Additional history exists Colon Cancer Screening-CT Colonography Discontinued 02/29/2016 Colon Cancer Screening-DNA Stool Discontinued 02/28/19 Colon Cancer Screening-FIT Discontinued 02/29/2016 Colon Cancer Screening-Sigmoidoscopy Discontinued 02/29/2016 Hepatitis C Screening Completed 02/13/2021 Pneumococcal vaccine <65 Completed 022, 2013, 12/16/2011 Procedures Procedure Name Priority Date/Time Associated Diagnosis Comments EGFR Routine 09/08/2023 9:52 AM CDT Dizziness POCT HEMOGLOBIN A1C Routine 08/19/2023 8 :00 AM CDT Type 2 diabetes mellitus with complication (HCC) LIPID PANEL Routine 02/09/2023 8:29 AM FILLER IN Preventative health care Hyperlipidemia, unspecified hyperlipidemia type ALBUMIN CREATININE RATIO, URINE Routine 02/09/2023 8:29 AM FILLER IN Type 2 diabetes mellitus with diabetic mononeuropathy, with long-term current use of insulin (HCC) Preventative [facility] PSA, TOTAL AND FREE Routine 02/09/2023 8 :29 AM FILLER IN Preventative health care Lower urinary tract symptoms (LUTS) Prostate cancer screening HM DIABETES FOOT EXAM Routine 08/28/2021 HEPATITIS C ANTIBODY Routine 02/13/2021 9:50 AM FILLER IN Need for hepatitis C screening test DIABETES EYE EXAM Routine 11/28/2020 COLONOSCOPY Routine 02/29/2016 from Last 3 Months or Most Recently Relevant to Health Maintenance Results * eGFR (09/08/2023 9:52 AM CDT) eGFR 83 >=60 mL/min/1. 73 m2 Comment: Interpretive Data Reference Interval Normal >/= 90 mL/min/1.73m2 Mildly decreased* 60 - 89 mL/min/1.73m2 Mildly to moderately decreased 45 - 59 mL/min/1.73m2 Moderately to severely decreased 30 - 44 mL/min/1.73m2 Severely decreased 15 - 29 mL/min/1.73m2 Kidney Failure < 15 mL/min/1.73m2 *Relative to young adult level Estimated glomerular filtration rate is determined by the 2020 CKD-EPI equation recommended by the National Kidney Foundation (A Unifying Approach to GFR Estimation: Recommendations of the NKF-ASK Task Force on Reassessing the Inclusion of Race in Diagnosing Kidney Disease, JASN 2020). The CKD-EPI equation should not be used for patients with unstable renal function and has not been validated in children and those over 70. Current interpretive data was last reviewed 2020. Blood 09/08/2023 9:52 AM CDT 09/08/2023 12:07 PM CDT Rupal Freire [facility] LAB BLOOD ORDERABLES Final Result [facility] Department of Laboratories [place], [place] [id number] * POCT hemoglobin A1c (08/19/2023 8:00 AM CDT) Hemoglobin A1C, POC 6.3 % Blood 08/19/2023 8:00 AM CDT Claudia Gibbs MD POINT OF CARE TEST ORDERABLES Fi nal Result * Albumin Creatinine Ratio, Urine (02/09/2023 8:29 AM FILLER IN) Albumin Ur <12.0 mg/L [facility] Comment: Interpretive Data No reference range established. Current interpretive data was last revised 2018. Creatinine Ur 161.5 mg/dL [facility] Comment: Interpretive Data No reference range established. Current interpretive data was last revised 2018. Albumin Creatinine Ratio, Ur <7 1 - 29 mg/g [facility] Urine 02/09/2023 8:29 AM FILLER IN 02/09/2023 3:19 PM FILLER IN Ciro Berger MD LAB URINE ORDERABLES [facility] al Result [facility] [address] Department [place] [address] * PSA, total and free (02/09/2023 8:29 AM FILLER IN) PSA-free 0.2 ng/mL [facility] PSA-Total 0.68 <=3.5 ng/mL [facility] PSA-Free/Total Ratio See Footnote [facility] Comment: Ratio not calculated because clinical usefulness is not defined except in range of total PSA 4.0-10.0 ng/mL. ADDITIONAL INFORMATION The testing method is an electrochemiluminescence assay manufactured by [employer] and performed on the Modular or Jhony system. Values obtained with different assay methods or kits may be different and cannot be used interchangeably. Test results cannot be interpreted as absolute evidence for the presence or absence of malignant disease. Test Performed by: [facility] [address] [place] [address] Wire Charger: Amor Patricio M.D. Ph.D.; CLIA# [id number] Blood 02/09/2023 8:29 AM FILLER IN 02/09/2023 3:19 PM FILLER IN us Ciro Berger MD LAB BLOOD ORDERABLES Fin al Result [facility] [address] Department [place] [address] * (ABNORMAL) Lipid panel (02/09/2023 8:29 AM FILLER IN) Cholesterol 159 30 - 199 mg/dL [facility] Comment: Interpretive Data Ages < or = 19 years Acceptable: <170 mg/dL Borderline high: 170-199 mg/dL High: >or= 200 mg/dL Ages > or = 20 years Desirable: <200 mg/dL Borderline high: 200-239 mg/dL High: >or= 240 mg/dL Literature References: 1. Expert Panel on Integrated Guidelines for Cardiovascular Health and Risk Reduction in Children and Adolescents. Pediatrics 2011;128:S213 2. NCEP Expert Panel. Circulation 2004;110:227 Current Interpretive Data was last revised on 2017. Triglycerides 292(H) <=149 mg/dL [facility] Comment: Interpretive Data Ages < or = 9 years Acceptable: <75 mg/dL Borderline high: 75-99 mg/dL High: >or= 100 mg/dL Ages 10 to 20 years Acceptable: <90 mg/dL Borderline high: 90-129 mg/dL High: >or= 130 mg/dL Ages > or = 20 years Desirable: <150 mg/dL Borderline high: 150-199 mg/dL High: 200-499 mg/dL Very high: >or= 499 mg/dL Literature References: 1. Expert Panel on Integrated Guidelines for Cardiovascular Health and Risk Reduction in Children and Adolescents. Pediatrics 2011;128:S213 2. NCEP Expert Panel. Circulation 2004;110:227 Current Interpretive Data was last revised on 2017. HDL 48 >=40 mg/dL [facility] Comment: Interpretive Data Ages < or = 19 years Acceptable: >45 mg/dL Borderline low: 40-45 mg/dL Low: <40 mg/dL Ages > or = 20 years Desirable: >or= 60 mg/dL Low: <40 mg/dL Literature References: 1. Expert Panel on Integrated Guidelines for Cardiovascular Health and Risk Reduction in Children and Adolescents. Pediatrics 2011;128:S213 2. NCEP Expert Panel. Circulation 2004;110:227 Current Interpretive Data was last revised on 2017. LDL, calculated 53 <=129 mg/dL [facility] Comment: Interpretive Data Ages < or = 19 years Acceptable: <110 mg/dL Borderline high: 110-129 mg/dL High: >or= 130 mg/dL Ages > or = 20 years Optimal: <100 mg/dL Near optimal: 100-129 mg/dL Borderline high: 130-159 mg/dL High: >160 mg/dL Literature References: 1. Expert Panel on Integrated Guidelines for Cardiovascular Health and Risk Reduction in Children and Adolescents. Pediatrics 2011;128:S213 2. NCEP Expert Panel. Circulation 2004;110:227 Current Interpretive Data was last revised on 2017. Non-HDL Cholesterol 111 mg/dL [facility] Comment: Interpretive Data Ages < or = 19 years Acceptable: <120 mg/dL Borderline high: 120-144 mg/dL High: >145 mg/dL Ages > or = 20 years When triglycerides are >200 mg/dL, Non-HDL cholesterol is a secondary target of therapy with treatment goals that are 30 mg/dL greater than the LDL cholesterol target. Literature References: 1. Expert Panel on Integrated Guidelines for Cardiovascular Health and Risk Reduction in Children and Adolescents. Pediatrics 2011;128:S213 2. NCEP Expert Panel. Circulation 2004;110:227 Current Interpretive Data was last revised on 2017. Chol/HDL ratio 3 [facility] Blood 02/09/2023 8:29 AM FILLER IN 02/09/2023 3:19 PM FILLER IN us Ciro Berger MD LAB BLOOD ORDERABLES Fin al Result ANTHONY [address] [address] Department [place] [address] * DIABETES FOOT EXAM (08/28/2021) Pathologist [facility] Diabetic Foot Exam Abnormal Historical Provider HEALTH MAINTENANCE Final Result * Hepatitis C antibody (02/13/2021 9:50 AM FILLER IN) Pathologist [facility] Hep C Ab Nonreactive Nonreactive [facility] Comment:Antibodies to HCV no t detected. Does NOT exclude the possibility of recent exposure to HCV. Blood 02/13/2021 9:50 AM FILLER IN 02/13/2021 12:36 PM FILLER IN Ciro Berger MD LAB MICROBIOLOGY - GENER AL ORDERABLES Edited Result - Final [facility] Department [place] [address] * DIABETES EYE EXAM (11/28/2020) Pathologist [facility] Diabetic Eye Exam Normal Historical Provider HEALTH MAINTENANCE Final Result * COLONOSCOPY (02/29/2016) Pathologist [facility] Colonoscopy Abnormal Historical Provider HEALTH MAINTENANCE Final Result from Last 3 Months or Most Recently Relevant to Health Maintenance [place] [employer] [place] [employer] [place] [employer] [place] [employer] [place] Care Teams Jet Aircraft Servicer Relationship Specialty Start Date End Date Ciro Berger MD [address] [place] [address] DR Prieto [address] [address] PCP - General 05/25/16 Lydia Hairston MD [address] [place] [address] Medical Oncologist/Hematologi st Hematology 09/30/17 Cecil Jewell MD [address] [place] [address] Referring Physician Endocrinology Diabetes & Metabolism 09/30/17 Leidy Durán MD [address] [place] [address] DR LAQUITA Garcia [address] [address] Referring Physician Gastroenterology 11/16/17 David David MD [address] [place] [address] DR LAQUITA Garcia [address] [address] Referring Physician General Surgery 02/01/18 Nader Martínez MD [address] [place] [address] Referring Physician Neurology 02/11/20
--- OUTSIDE RECORDS SUMMARY | 2024-06-19 02:12 | XMS_ITS | Encounter Summary ---
Author Organization [facility] Address 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
--- OUTSIDE RECORDS SUMMARY | 2024-06-19 02:12 | XMS_ITS | Encounter Summary ---
Author Organization [facility] Address [address] [place] [address] Care Team Providers Care Table Games Floor Supervisor Name Role Phone Satnam Liu DO Primary Care Provider Unav ailable Encounter Details Date Type Department Care Team (Late st Contact Info) Description 10/29/2004 Outpatient Historical [facility] Primary Care - [address] [place] [address] Carmelo Sher MD [address] [facility] [address] [place], [place] [id number] Social History Tobacco Use Types Packs/Day Years Used Date Smoking Tobacco: Never Assessed Sex and Gender Information Value Date Recorded Sex Assigned at Not on file Legal Sex Male 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
--- OUTSIDE RECORDS SUMMARY | 2024-06-19 02:12 | XMS_ITS | Encounter Summary ---
Author Organization [facility] Address [address] [place] [address] Care Team Providers Care Container Shop Welder Name Role Phone Satnam Liu DO Primary Care Provider Unav ailable Encounter Details Date Type Department Care Team (Late st Contact Info) Description 03/09/2005 Orders Only [facility] Primary Care - [address] [place] [address] Carmelo Sher MD [address] [facility] [address] [place], [place] [id number] Social History Tobacco Use Types Packs/Day Years Used Date Smoking Tobacco: Never Assessed Sex and Gender Information Value Date Recorded Sex Assigned at Not on file Legal 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 MEDICATIONS: Medications may have changed. Dr to review medications. CHIEF COMPLAINT right shoulder pain,and discuss meds HISTORY: HISTORY: 250.00-DM TYPE II CONTROLLED The patient denies polyuria, polyphagia, polydipsia, change in vision,foot ulcerations, or hypoglycemic episodes. 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 NECK/THYROID: Trachea midline. No thyroid enlargement, tenderness, or mass. No supraclavicular or cervical adenopathy. RESPIRATORY: Clear to auscultation and percussion. Normal respiratory effort. CARDIOVASCULAR: CARDIAC: Regular rhythm. No murmurs, rubs, or gallops. ARTERIAL: Aortic pulses of normal amplitude with no bruits. EDEMA/VARICOSITIES OF EXTREMITIES: No edema or varicosities. GASTROINTESTINAL: ABDOMEN: Soft, non-tender, without masses. Bowel sounds active. LIVER/SPLEEN/KIDNEY: No hepatosplenomegaly, tenderness or nodularity. Kidneys not palpable. MUSCULOSKELETAL EXAM: slightly decreased ROM, no tenderness OFFICE PROCEDURES: ASSESSMENT/PLAN: 250.00-DM TYPE II CONTROLLED ASSESSMENT: The diabetes remains satisfactory. Will not change medication, continue to monitor for complications. LAB ORDERS: Order number: [id number] Test Ordered: COMPREHENSIVE METABOLIC PANEL 10647 Order number: [id number] Test Ordered: LIPID PANEL 7600 Order number: [id number] Test Ordered: HEMOGLOBIN A1c 496 719.41-PAIN JOINT SHOULDER ASSESSMENT: The patient's shoulder pain has worsened. MEDICATIONS: NAPROXEN ORAL TABLET ENTERIC COATED 500 MG, 1 with food B.I.D. for shoulder pain, 60 Dispensed, status: NEW PRESCRIPTION, 03/09/2005. SPECIALTY REFERRAL: ORTHOPEDICS Dr. Tristan Garcia ph: [phone]. HEALTH MAINTENANCE: DISCUSSED SMOKING: yes-neg. LAST TD: wnl SEXUAL ACTIVITY DISCUSSED: neg. SUBSTANCE ABUSE DISCUSSED: yes-pos. ( social drinking) INJURY PREVENTION DISCUSSED: yes-pos. DIET AND EXERCISE DISCUSSED: yes-pos. ADVANCED DIRECTIVES DISCUSSED: neg. LAST DATE COLONOSCOPY: . LAST DATE FLEX SIG: neg. LAST DATE FOBT: neg. LAST BONE DENSITY DATE: neg. DIABETIC EYE EXAM: neg. DIABETIC EYE EXAM PROVIDER: neg. DIABETIC FOOT EXAM: neg LAST FLU VACCINE:neg LAST PNEUMOCOCCAL:neg RETURN VISIT : Patient instructed to return in 4 months. Electronically Signed by: Carmelo Sher MD on Wednesday, March 09, 2005 documented in this encounter Plan of Treatment Not on file documented as of this encounter Visit Diagnoses Not on filedocumented in this encounter Care Teams Container Shop Welder Relationship Specialty Start Date End Date Satnam Liu DO PCP - General 02/12/15 documented as of this encounter
--- OUTSIDE RECORDS SUMMARY | 2024-06-19 02:12 | XMS_ITS | Encounter Summary ---
Author Organization [facility] Address [address] [place] [address] Care Team Providers Care Supervisor Concrete Stone Fabricating Name Role Phone Satnam Liu DO Primary Care Provider Unav ailable Encounter Details Date Type Department Care Team (Late st Contact Info) Description 10/29/2004 Outpatient Historical [facility] Primary Care - [address] [place] [address] Carmelo Sher MD [address] [facility] [address] [place], [place] [id number] Social History Tobacco Use Types Packs/Day Years Used Date Smoking Tobacco: Never Assessed Sex and Gender Information Value Date Recorded Sex Assigned at Not on file Legal Sex Male 3:54 AM COMPLIANCE AIDE Gender Identity Not on file Sexual Orientation Not on file documented as of this encounter Plan of Treatment Not on file documented as of this encounter Visit Diagnoses Not on filedocumented in this encounter Care Teams Supervisor Concrete Stone Fabricating Relationship Specialty Start Date End Date Satnam Liu DO PCP - General 02/12/15 documented as of this encounter
--- OUTSIDE RECORDS SUMMARY | 2024-06-19 02:12 | XMS_ITS | Encounter Summary ---
Author Organization [facility] Address [address] [place] [address] Care Team Providers Care Informatics Educator Name Role Phone Satnam Liu DO Primary Care Provider Unav ailable Encounter Details Date Type Department Care Team (Late st Contact Info) Description 10/04/2001 Outpatient [facility] Primary Care - [address] [place] [address] Liam Whitaker Social History Tobacco Use Types Packs/Day Years Used Date Smoking Tobacco: Never Assessed Sex and Gender Information Value Date Recorded Sex Assigned at Not on file Legal Sex Male 3:54 AM ASSOCIATE MEDIA DIRECTOR Gender Identity Not on file Sexual Orientation Not on file documented as of this encounter Plan of Treatment Not on file documented as of this encounter Visit Diagnoses Not on filedocumented in this encounter Care Teams Informatics Educator Relationship Specialty Start Date End Date Satnam Liu DO PCP - General 02/12/15 documented as of this encounter
--- OUTSIDE RECORDS SUMMARY | 2024-06-19 02:12 | XMS_ITS | Encounter Summary ---
Author Organization [facility] Address [address] [place] [address] Care Team Providers Care Cyber Security Architect Name Role Phone Satnam Liu DO Primary Care Provider Unav ailable Encounter Details Date Type Department Care Team (Latest Contact Info) Description 08/22/1998 Outpatient Historical [facility] Logan Chino MD [address] [facility] Dept [place] [address] Leidy Durán MD [address] 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
--- OUTSIDE RECORDS SUMMARY | 2024-06-19 02:12 | XMS_ITS | Encounter Summary ---
Author Organization [facility] Address [address] [place] [address] Care Team Providers Care Business Banking Sales Assistant Name Role Phone Satnam Liu DO Primary Care Provider Unav ailable Encounter Details Date Type Department Care Team (Late st Contact Info) Description 03/09/2005 Outpatient Historical [facility] Primary Care - [address] [place] [address] Carmelo Sher MD [address] [facility] [address] [place], [place] [id number] Social History Tobacco Use Types Packs/Day Years Used Date Smoking Tobacco: Never Assessed Sex and Gender Information Value Date Recorded Sex Assigned at Not on file Legal 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
--- OUTSIDE RECORDS SUMMARY | 2024-06-19 02:12 | XMS_ITS | Encounter Summary ---
Author Organization [facility] Address 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
--- OUTSIDE RECORDS SUMMARY | 2024-06-19 02:12 | XMS_ITS | Encounter Summary ---
Author Organization [facility] Address [address] [place] [address] Care Team Providers Care Leather Whitener Name Role Phone Satnam Liu DO Primary Care Provider Unav ailable Encounter Details Date Type Department Care Team (Late st Contact Info) Description 11/20/1998 Outpatient [facility] Internal Medicine [facility] [address] [facility] [address] [place] [phone] Humberto Siu Social History Tobacco Use Types Packs/Day Years Used Date Smoking Tobacco: Never Assessed Sex and Gender Information Value Date Recorded Sex Assigned at Not on file Legal Sex Male 3:54 AM PIPE STRAIGHTENER Gender Identity Not on file Sexual Orientation Not on file documented as of this encounter Plan of Treatment Not on file documented as of this encounter Visit Diagnoses Not on filedocumented in this encounter Care Teams Leather Whitener Relationship Specialty Start Date End Date Satnam Liu DO PCP - General 02/12/15 documented as of this encounter
--- OUTSIDE RECORDS SUMMARY | 2024-06-19 02:12 | XMS_ITS | Encounter Summary ---
Author Organization [facility] Address [address] [place] [address] Care Team Providers Care Carpet Repairer Name Role Phone Satnam Liu DO Primary Care Provider Unav ailable Encounter Details Date Type Department Care Team (Late st Contact Info) Description 09/26/1998 Outpatient [facility] Internal Medicine [facility] [address] [facility] [address] [place] [phone] Humberto Siu Social History Tobacco Use Types Packs/Day Years Used Date Smoking Tobacco: Never Assessed Sex and Gender Information Value Date Recorded Sex Assigned at Not on file Legal Sex Male 3:54 AM ENGINEERING ILLUSTRATOR Gender Identity Not on file Sexual Orientation Not on file documented as of this encounter Plan of Treatment Not on file documented as of this encounter Visit Diagnoses Not on filedocumented in this encounter Care Teams Carpet Repairer Relationship Specialty Start Date End Date Satnam Liu DO PCP - General 02/12/15 documented as of this encounter
--- OUTSIDE RECORDS SUMMARY | 2024-06-19 02:12 | XMS_ITS | Encounter Summary ---
Author Organization [facility] Address [address] [place] [address] Care Team Providers Care Field Producer Name Role Phone Satnam Liu DO Primary Care Provider Unav ailable Encounter Details Date Type Department Care Team (Late st Contact Info) Description 07/12/2005 Outpatient [facility] Primary Care - [address] [place] [address] Carmelo Sher MD [address] [facility] [address] [place], [place] [phone] Social History Tobacco Use Types Packs/Day Years Used Date Smoking Tobacco: Never Assessed Sex and Gender Information Value Date Recorded Sex Assigned at Not on file Legal Sex Male 3:54 AM CATARACT LENS GENERATOR Gender Identity Not on file Sexual Orientation Not on file documented as of this encounter Plan of Treatment Not on file documented as of this encounter Visit Diagnoses Not on filedocumented in this encounter Care Teams Field Producer Relationship Specialty Start Date End Date Satnam Liu DO PCP - General 02/12/15 documented as of this encounter
--- OUTSIDE RECORDS SUMMARY | 2024-06-19 02:12 | XMS_ITS | Encounter Summary ---
Author Organization [facility] Address [address] [place] [address] Care Team Providers Care Mechanic Industrial Truck Name Role Phone Satnam Liu DO Primary Care Provider Unav ailable Encounter Details Date Type Department Care Team (Late st Contact Info) Description 01/27/1999 Outpatient [facility] Internal Medicine [facility] [address] [facility] [address] [place] [phone] Humberto Siu Social History Tobacco Use Types Packs/Day Years Used Date Smoking Tobacco: Never Assessed Sex and Gender Information Value Date Recorded Sex Assigned at Not on file Legal Sex Male 3:54 AM SHELL SIEVE OPERATOR Gender Identity Not on file Sexual Orientation Not on file documented as of this encounter Plan of Treatment Not on file documented as of this encounter Visit Diagnoses Not on filedocumented in this encounter Care Teams Mechanic Industrial Truck Relationship Specialty Start Date End Date Satnam Liu DO PCP - General 02/12/15 documented as of this encounter
--- OUTSIDE RECORDS SUMMARY | 2024-06-19 02:12 | XMS_ITS | Encounter Summary ---
Author Organization [facility] Address [address] [place] [address] Care Team Providers Care Smelter Charger Name Role Phone Satnam Liu DO Primary Care Provider Unav ailable Encounter Details Date Type Department Care Team (Late st Contact Info) Description 07/12/2005 Outpatient Historical [facility] Primary Care - [address] [place] [address] Carmelo Sher MD [address] [facility] [address] [place] [address] Other and Unspecified Hyperlipidemia (Primary Dx) Social History Tobacco Use Types Packs/Day Years Used Date Smoking Tobacco: Never Assessed Sex and Gender Information Value Date Recorded Sex Assigned at Not on file Legal Sex Male 3:54 AM INDUSTRIAL/ORGANIZATIONAL PSYCHOLOGIST Gender Identity Not on file Sexual Orientation Not on file documented as of this encounter Plan of Treatment Not on file documented as of this encounter Procedures Procedure Name Priority Date/Time Associated Diagnosis Comments MICROALBUMIN/CREATININ E RATIO, RANDOM UR Routine 07/12/2005 8:49 PM CDT TSH Routine 07/12/2005 8:49 PM CDT HEMOGLOBIN A1C Routine 07/12/2005 8:49 PM CDT LIPID PANEL Routine 07/12/2005 8:49 PM CDT COMPREHENSIVE METABOLIC PANEL Routine 07/12/2005 8:49 PM CDT documented in this encounter Results * MICROALBUMIN/CREATININE RATIO, RANDOM UR (07/12/2005 8:49 PM CDT) MICROALBUMIN/C REAT RATIO, UR 11 0 - 29 mg/g creatinine INTERFACE SYSTEM 07/12/2005 8:49 PM CDT us Carmelo Sher MD URINE ORDERABLES Final Result Performing Organization Address [facility] Phone Number INTERFACE SYSTEM Refer to clinic/hospital department * (ABNORMAL) HEMOGLOBIN A1C (07/12/2005 8:49 PM CDT) HEMOGLOBIN A1C 7.3(H) 3.9 - 6.1 % of Hgb INTERFACE SYSTEM GLUCOSE, MEAN BLOOD 157 mg/dL INTERFACE SYSTEM 07/12/2005 8:49 PM CDT us Carmelo Sher MD CHEMISTRY ORDERABLES Final Resul t Performing Organization Address [facility] Phone Number INTERFACE SYSTEM Refer to clinic/hospital department * TSH (07/12/2005 8:49 PM CDT) Pathologist [facility] TSH 2.31 0.27 - 4.20 uU/mL INTERFACE SYSTEM 07/12/2005 8:49 PM CDT us Carmelo Sher MD CHEMISTRY ORDERABLES Final Resul t Performing Organization Address [facility] Phone Number INTERFACE SYSTEM Refer to clinic/hospital department * (ABNORMAL) COMPREHENSIVE METABOLIC PANEL (07/12/2005 8:49 PM CDT) GLUCOSE 89 65 - 109 mg/dL INTERFACE SYSTEM CREATININE 0.9 0.5 - 1.3 mg/dL INTERFACE SYSTEM CALCIUM 10.0 8.6 - 10.2 mg/dL INTERFACE SYSTEM AST 31 12 - 38 U/L INTERFACE SYSTEM ALKALINE PHOSPHATASE 74 40 - 129 U/L INTERFACE SYSTEM ALT 43(H) 0 - 41 U/L INTERFACE SYSTEM BILIRUBIN TOTAL 1.6(H) 0.2 - 1.0 mg/dL INTERFACE SYSTEM ALBUMIN 5.0(H) 3.4 - 4.8 g/dL INTERFACE SYSTEM TOTAL PROTEIN 7.5 6.3 - 8.6 g/dL INTERFACE SYSTEM BUN 14 6 - 20 mg/dL INTERFACE SYSTEM SODIUM 145 135 - 145 mmol/L INTERFACE SYSTEM POTASSIUM 4.7 3.5 - 4.9 mmol/L INTERFACE SYSTEM CHLORIDE 105 96 - 108 mmol/L INTERFACE SYSTEM CO2 28 22 - 30 mmol/L INTERFACE SYSTEM 07/12/2005 8:49 PM CDT us Carmelo Sher MD CHEMISTRY ORDERABLES Final Resul t INTERFACE SYSTEM Refer to clinic/hospital department * (ABNORMAL) LIPID PANEL (07/12/2005 8:49 PM CDT) CHOLESTEROL 170 100 - 199 mg/dL INTERFACE SYSTEM TRIGLYCERIDE 263(H) 10 - 149 mg/dL INTERFACE SYSTEM HDL 59 40 - 59 mg/dL INTERFACE SYSTEM CHOL/HDL RATIO 2.9 2.0 - 5.0 INTER FACE SYSTEM Comment:See interpretive win a section for risk classifications. LDL CALCULATED 58 <=99 mg/dL INTERFACE SYSTEM LIPID PANEL COMMENT See Below INTERFACE SYSTEM Comment: Adult ATP III Classifications: Cholesterol (mg/dL) Triglyceride (mg/dL) Desirable <200 Normal <150 Borderline 200 - 239 Borderline High 150 - 199 High >=240 High 200 - 499 Very High >=500 HDL Cholesterol (mg/dL) LDL (mg/dL) Low (increased risk) <40 Optimal <100 High (reduced risk) >=60 Near or above optimal 100 - 129 Borderline 130 - 159 High 160 - 189 Very High >=190 LDL calculation is not accurate if Triglycerides are greater than 400 mg /dL Pediatric NCEP Classifications: Cholesterol(<20 years),(mg/dL) Triglyceride Desirable <170 Pediatric classification Borderline 170 - 199 not defined. High >=200 HDL (<5 years) LDL (mg/dL) No Reference Range Established Desirable <110 Borderline 110 - 129 High >=130 07/12/2005 8:49 PM CDT us Carmelo Sher MD CHEMISTRY ORDERABLES Final Resul t INTERFACE SYSTEM Refer to clinic/hospital department documented in this encounter Visit Diagnoses Diagnosis Other and unspecified hyperlipidemia- Primary documented in this encounter Care Teams Smelter Charger Relationship Specialty Start Date End Date Satnam Liu DO PCP - General 02/12/15 documented as of this encounter
--- OUTSIDE RECORDS SUMMARY | 2024-06-19 02:12 | XMS_ITS | Clinical Summary ---
Author Organization [facility] Address [address] [place] [address] Care Team Providers Care Exhibit Cleaner Name Role Phone Satnam Liu DO Primary Care Provider Unav ailable Allergies Active Allergy Reactions Criticality Noted Date Comments No Known Allergies 10/29/2004 Medications ACTOS 15 MG TAB 1 Every Day 30.00 2 6 Active ONE TOUCH ULTRASOFT LANCETS as directed 100.00 11 6 Active ONE TOUCH ULTRA TEST STRIPS use as directed 100.00 11 6 Active CITALOPRAM 40 MG TAB 1 Every Day 90.00 3 6 Active NEXIUM 40 MG CAP 1 Every Day 90.00 3 6 Active METFORMIN 500 MG TAB 2 tabs twice daily with food 360.00 0 6 Active GLIPIZIDE SR 10 MG 24 HR TAB 2 Every Day,before meal 60.00 2 6 Active sumatriptan (IMITREX) 100 mg Oral Tab Take 100 mg by mouth see administration instructions. Active INSULIN GLARGINE,HUM.R EC.ANLOG (LANTUS SC) Inject by subcutaneous injection. Active atorvastatin (LIPITOR) 40 mg Oral Tab Take 40 mg by mouth Daily LATE. Active CODEINE/BUTALB ITAL/ASA/CAFFE IN (FIORINAL-CODE INE #3 PO) Take by mouth. Acti ve Active Problems Problem Noted Date Diagnosed Date Ventricular Ectopy 12/17/2008 Overview (12/17/2008): freq PVCs holter 12/06 Esophageal reflux 12/03/2005 Depressive disorder, not elsewhere classified Temporomandibular joint soun ds on opening and/or closing the jaw 03/09/2005 Type II or unspecified type diabetes mellitus without mention of complication, not stated as uncontrolled 10/29/2004 Hyperlipidemia 10/29/2004 Migraine with aura, without mention of intractable migraine without mention of status migrainosus 10/29/2004 Resolved Problems Problem Noted Date Diagnosed Date Resolved Date Anxiety state, unspecified 03/09/2005 1 Pain in joint, shoulder region 03/09/2005 12/17/2008 Irritable bowel syndrome 10/29/2004 Routine general medical exam ination at a health care facility 10/29/2004 12/17/2008 Social History Tobacco Use Types Packs/Day Years Used Date Smoking Tobacco: Never Alcohol Use Standard Drinks/Week Comments Yes 0 (1 standard drink = 0.6 oz pur e alcohol) rarely Sex and Gender Information Value Date Recorded Sex Assigned at Not on file 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 Gender Identity Not on file Sexual Orientation Not on file Last Filed Vital Signs Vital Sign Reading Time Taken Comments Blood Pressure 132/80 12/17/2008 2:00 PM CDT Pulse 84 12/17/2008 2:00 PM CDT Temperature - - Respiratory Rate - - Oxygen Saturation 99% 12/17/2008 2:00 PM CDT Inhaled Oxygen Concentration - - Weight 102.5 kg (226 lb) 12/17/2008 2:00 PM CDT Height 182.9 cm (6') 12/17/2008 2:00 PM CDT Body Mass Index 30.65 12/17/2008 2:00 PM CDT Plan of Treatment Health Maintenance Due Date Last Done Comments DIABETES ANNUAL FOOT EXAM 1983 DIABETES ANNUAL RETINAL EXAM 1983 DTAP/TDAP/TD VACCINES (1 - Tdap) 02/29/1984 HEPATITIS B VACCINES (1 of 3 - 19+ 3-dose series) 02/29/1984 DIABETES HBA1C Q 6 MONTHS 06/03/2006 12/03/2005, DIABETES MICROALBUMIN ANNUAL SCREEN 07/12/2006 07/12/2005 LDL CHOLESTEROL ANNUAL 05/31/200805/31/200 8, 01/24/2007, 10/01/2006, Additional history exists COLORECTAL SCREENING 2010 Colorectal Cancer Screening 2010 FIT-DNA Q 3 years 2010 FIT/FOBT Q 1 year 2010 Flex Sig/CT Colonography Q 5 years 2010 ZOSTER VACCINE (1 of 2) 2015 INFLUENZA VACCINE (#1) 2023 Procedures Procedure Name Priority Date/Time Associated Diagnosis Comments LIPID PANEL Routine 06/01/2007 7:11 PM CDT HEMOGLOBIN A1C Routine 12/03/2005 1:33 PM CDT MICROALBUMIN/CREATIN INE RATIO, RANDOM UR Routine 07/12/2005 8:49 PM CDT from Last 3 Months or Most Recently Relevant to Health Maintenance Results * (ABNORMAL) LIPID PANEL (06/01/2007 7:11 PM CDT) CHOL/HDL RATIO 2.8 2.0 - 5.0 [facility] TRIGLYCERIDE 183(H) 10 - 149 mg/dL [facility] HDL 50 40 - 59 mg/dL [facility] CHOLESTEROL 139 100 - 199 mg/dL [facility] LDL CALCULATED 52 <=99 mg/dL [facility] LIPID PANEL COMMENT See Below [facility] Comment: The adult ATP and pediatric NCEP classifications for lipids are available on the [facility] Intranet at: [email or web address] Select: Lab Policies and Procedures,Current Select: Lipid Panel Interpretation Blood specimen (specimen) 06/01/2007 7:11 PM CDT 06/01/2007 7:38 PM CDT us Kahlil Panchal MD CHEMISTRY ORDERABLES Ed ited [facility] [address] [place] [address] * (ABNORMAL) HEMOGLOBIN A1C (12/03/2005 1:33 PM CDT) HEMOGLOBIN A1C 7.6(H) 3.9 - 6.1 % of Hgb INTERFACE SYSTEM GLUCOSE, MEAN BLOOD 167 mg/dL INTERFACE SYSTEM 12/03/2005 1:33 PM CDT Carmelo Sher MD CHEMISTRY ORDERABLES Final Resul t Performing Organization Address City/[facility] de Phone Number INTERFACE SYSTEM Refer to clinic/hospital department * MICROALBUMIN/CREATININE RATIO, RANDOM UR (07/12/2005 8:49 PM CDT) MICROALBUMIN/C REAT RATIO, UR 11 0 - 29 mg/g creatinine INTERFACE SYSTEM 07/12/2005 8:49 PM CDT Carmelo Sher MD URINE ORDERABLES Final Result Performing Organization Address [facility] Phone Number INTERFACE SYSTEM Refer to clinic/hospital department from Last 3 Months or Most Recently Relevant to Health Maintenance Insurance [facility] BLUE ACCESS/TRUE BLUE PPO Care Teams Exhibit Cleaner Relationship Specialty Start Date End Date Satnam Liu DO PCP - General 02/12/15
--- OUTSIDE RECORDS SUMMARY | 2024-06-19 02:12 | XMS_ITS | Encounter Summary ---
Author Organization [facility] Address [address] [place] [address] Care Team Providers Care Noxious Weeds And Pest Inspector Name Role Phone Satnam Liu DO Primary Care Provider Unav ailable Encounter Details Date Type Department Care Team (Late st Contact Info) Description 12/30/2005 Orders Only [facility] Primary Care - [address] [place] [address] Carmelo Sher MD [address] [facility] [address] [place] [address] Social History Tobacco Use Types Packs/Day Years Used Date Smoking Tobacco: Never Assessed Sex and Gender Information Value Date Recorded Sex Assigned at Not on file 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 WHO CALLED: Patient`s spouse called. SECTION 1: REQUESTED ACTION sharath 12/30/05 at 02:07 pm: TEST RESULT: Patient requests test results pt. wants lab results mailed to him; pt. hasn't gotten his results from 12/03................/su DOCTOR`S RESPONSE: andrew 01/01/06 at 05:06 am pool see labs on your desk MEDICATIONS: Call in to Pharmacy ACTOS ORAL TABLET 15 MG, 1 Every Day, 30 Dispensed, 2 Fills, status: NEW PRESCRIPTION, 12/30/2005. --sajan i think i placed them in your desk this a.m. FINAL ACTION: maureen 01/03/06 at 10:13 am ADDITIONAL COMMENTS: states out of area in [place], will mail results with instructions. pt will call for additional instructions when available this week. GG WANTED YOU TO KNOW PT HAD SEVERE MIGRAINE IN AM DID NOT GET RELIEF WITH MAXALT&THE PILL HAD A BAD TASTE(DISPERSIBLE) HE HAD TRIED IMITREX ALSO IN THE PAST ANY SUGGESTIONS? SECTION 2: DOCTOR`S RESPONSE: andrew 01/03/06 at 10:31 am Headache specialist when he returns can try relpax, he refused to sign controlled substance agreement for some reason MEDICATIONS: RELPAX ORAL TABLET 40 MG, 1 tab at headache onset repeat in 2 hours if necessary take first dose with three advil tabs, 6 Dispensed, status: NEW PRESCRIPTION, 12/30/2005. FINAL ACTION: marianm 01/03/06 at 03:33 pm Called pharmacy at 01/03/06 at 03:37 pm. [phone] ADDITIONAL COMMENTS: pt calling worried because pt continues to have an intense migraine.awareof new med but also advised may need to consider er for headache relief . pt out of area until pr Electronically Signed by: Sajan Reilly on Tuesday, January 03, 2006 documented in this encounter Plan of Treatment Not on file documented as of this encounter Visit Diagnoses Not on filedocumented in this encounter Care Teams Noxious Weeds And Pest Inspector Relationship Specialty Start Date End Date Satnam Liu DO PCP - General 02/12/15 documented as of this encounter
--- OUTSIDE RECORDS SUMMARY | 2024-06-19 02:12 | XMS_ITS | Encounter Summary ---
Author Organization [facility] Address [address] [place] [address] Care Team Providers Care Supervisor Machining Name Role Phone Satnam Liu DO Primary Care Provider Unav ailable Encounter Details Date Type Department Care Team (Late st Contact Info) Description 12/03/2005 Outpatient Historical [facility] Primary Care - [address] [place] [address] Carmelo Sher MD [address] [facility] [address] [place] [address] DM w/o Complication Type II (CMS/HCC) (Primary Dx) Social History Tobacco Use Types Packs/Day Years Used Date Smoking Tobacco: Never Assessed Sex and Gender Information Value Date Recorded Sex Assigned at Not on file 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 Gender Identity Not on file Sexual Orientation Not on file documented as of this encounter Plan of Treatment Not on file documented as of this encounter Procedures Procedure Name Priority Date/Time Associated Diagnosis Comments TSH Routine 12/03/2005 1:33 PM CDT HEMOGLOBIN A1C Routine 12/03/2005 1:33 PM CDT LIPID PANEL Routine 12/03/2005 1:33 PM CDT documented in this encounter Results * (ABNORMAL) HEMOGLOBIN A1C (12/03/2005 1:33 PM CDT) HEMOGLOBIN A1C 7.6(H) 3.9 - 6.1 % of Hgb INTERFACE SYSTEM GLUCOSE, MEAN BLOOD 167 mg/dL INTERFACE SYSTEM 12/03/2005 1:33 PM CDT us Carmelo Sher MD CHEMISTRY ORDERABLES Final Resul t Performing Organization Address [facility] de Phone Number INTERFACE SYSTEM Refer to clinic/hospital department * TSH (12/03/2005 1:33 PM CDT) TSH 1.12 0.27 - 4.20 uU/mL INTERFACE SYSTEM 12/03/2005 1:33 PM CDT us Carmelo Sher MD CHEMISTRY ORDERABLES Final Resul t Performing Organization Address [facility] Phone Number INTERFACE SYSTEM Refer to clinic/hospital department * (ABNORMAL) LIPID PANEL (12/03/2005 1:33 PM CDT) CHOLESTEROL 137 100 - 199 mg/dL INTERFACE SYSTEM TRIGLYCERIDE 254(H) 10 - 149 mg/dL INTERFACE SYSTEM HDL 50 40 - 59 mg/dL INTERFACE SYSTEM CHOL/HDL RATIO 2.7 2.0 - 5.0 INTER FACE SYSTEM LDL CALCULATED 36 <=99 mg/dL INTERFACE SYSTEM LIPID PANEL COMMENT See Below INTERFACE SYSTEM Comment: The adult ATP and pediatric NCEP classifications for lipids are available on the [facility] Intranet at: [email or web address] Select: Lab Policies and Procedures Select: Reference Ranges - Lipids 12/03/2005 1:33 PM CDT Result Arcadio Sher MD CHEMISTRY ORDERABLES Final Resul t Performing Organization Address [facility] Co ut Phone Number INTERFACE SYSTEM Refer to clinic/hospital department documented in this encounter Visit Diagnoses Diagnosis Type II or unspecified type diabetes mellitus without mention of complication, not stated as uncontrolled- Primary documented in this encounter Care Teams Supervisor Machining Relationship Specialty Start Date End Date Satnam Liu DO PCP - General 02/12/15 documented as of this encounter
--- OUTSIDE RECORDS SUMMARY | 2024-06-19 02:12 | XMS_ITS | Encounter Summary ---
Author Organization [employer] Address 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
--- OUTSIDE RECORDS SUMMARY | 2024-06-19 02:13 | XMS_ITS | Referral Summary ---
Author Organization [facility] Address [address] [place] [address] Care Team Providers Care Assembly Lead Person Name Role Phone Ciro Berger MD Primary Care Provider + Lydia Hairston MD Unavailable Cecil Jewell MD Unavailable [phone] Leidy Durán MD Unavailable David David MD Unavailable [phone] Nader Marítnez MD Unavailable [phone] Encounters Date Type Department Care Team Description 06/04/[address] [phone] Ciro Berger MD med rf TARA 05/31/[address] [phone] Ciro Berger MD Med Refill 05/29/2024 1:00 PM CDT Office Visit [facility] [address] [place] [address] Ej Piña MD Migraine without aura and without status migrainosus, not intractable (Primary Dx); Postural dizziness with presyncope; Essential tremor; Diabetic polyneuropathy associated with diabetes mellitus due to underlying condition (HCC) from Last 3 Months Allergies No known active allergies Medications b complex vitamins tablet daily. 011 Active acetaminophen-asp irin-caffeine (EXCEDRIN MIGRAINE) 250-250-65 mg per tablet Take 1 tablet by mouth every 6 (six) hours as needed Active blood-glucose meter,continuous (Dexcom G6 Hydrant Setter) misc USE DIRECTED BY PRESCRIBER OR PACKAGE [...] daily as needed for anxiety 90 tablet Active empagliflozin (Jardiance) 25 mg tabletIndications :Type [...] total) by mouth daily 90 tablet 3 Active blood-glucose sensor (Dexcom G6 Sensor) deviceIndications [...] 05/19/2023 Assessment & Plan (01/24/2024 12:29 PM CORRECTIONAL LIEUTENANT): Dx essential tremor by neurology Self restarted [...] 02/04/2021 Assessment & Plan (02/04/2021 9:50 AM CORRECTIONAL LIEUTENANT): -Most likely multifactorial, due to medications, depression. -Will repeat CBC and ferritin -Will check TFT, Vitamin D -Recommend he discuss sleep study with Dr. Berger at follow up next week. Multiple nevi 08/14/2020 Insulin long-term use 03/14/2020 Jaw pain 02/11/2020 Depression with anxiety 02/09/2020 Assessment & Plan (01/24/2024 12:18 PM CORRECTIONAL LIEUTENANT): Mood has been stable Will refill bupropion Assessment & Plan (09/23/2023 12:54 PM CDT): Mood improving with impending shelter Assessment & Plan (09/08/2023 4:51 PM CDT): [...] needed Assessment & Plan (02/04/2021 9:48 AM CORRECTIONAL LIEUTENANT): -Taking daily iron supplement -Will repeat CBC and ferritin Proteinuria 08/26/2014 Chronic sinusitis 08/26/2014 Diabetic peripheral neuropathy 08/24/2014 Assessment & Plan (11/12/2022 1:55 PM CDT): Symptoms remained stable Continues gabapentin but has cut back. Assessment & Plan (08/05/2021 8:21 AM CDT): -Taking gabapentin -Following with podiatry Assessment & Plan (01/13/2021 8:59 AM CORRECTIONAL LIEUTENANT): Stable symptoms. Exam as above. B12, TSH normal. Discussed minimizing neuropathy risk factors. Continue gabapentin 600/600/600 Start compression stockings (15-20mmHg) during daytime Gastroesophageal reflux disease 08/24/2014 Overview (11/16/2017): EGD 03/16 Dr. Durán normal Hypertension 08/24/2014 Overview (11/16/2017): ekg nl 11/14 Assessment & Plan (01/24/2024 12:34 PM CORRECTIONAL LIEUTENANT): BP elevated today Notes he ran up [...] time. Assessment & Plan (02/04/2021 9:47 AM CORRECTIONAL LIEUTENANT): -BP today is 113/78 -Will continue same antihypertensive medications at this time. Irritable bowel syndrome 10/06/2012 Overview (08/17/2017): IBS (irritable bowel syndrome) Hyperlipidemia 03/11/2010 Assessment & Plan (08/02/2021 12:59 PM CDT): -Last labs January 2021: TC 150, trig 158, HDL 56, LDL 62 -Will continue statin as it is being tolerated without side effects Assessment & Plan (02/04/2021 9:47 AM CORRECTIONAL LIEUTENANT): -Last LDL was 71 in January 2020 -Will continue statin as it is being tolerated without side effects Migraine headache 03/11/2010 Assessment & Plan (01/13/2021 8:58 AM CORRECTIONAL LIEUTENANT): Current headache days: 02/26 Current moderate to [...] 03/11/2010 Assessment & Plan (01/24/2024 12:33 PM CORRECTIONAL LIEUTENANT): Would like to find new hoop punch and coiler operator, 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 He is trying to get established with a provider in [place]. Will refill metformin Assessment & Plan (09/23/2023 [...] date Assessment & Plan (02/04/2021 9:47 AM CORRECTIONAL LIEUTENANT): -Currently taking MDI, Symlin and oral agents. Also using Dexcom -A1C on 02/04/21 was 5.8% -Dexcom download indicates flat pattern, with 88.7% time in range. Will continue same medication regimen. -Discussed diet and activity modifications. -Advised to call with any concerns/complaints regarding glucose readings -Eye exam is up to date Immunizations Immunization Administration Dates Next Due COVID-19 mRNA (Redknee) 0.3 m L (30 mcg) vaccine (12 [...] PPV23 2013, Sars-cov-2 Covid-19 Mrna, Bi valent, Original/denise Ba.1 11/02/2023 TD Preservative Free 2013 Tdap 11/15/2013 ZOSTER Recombinant 02/01/2018 Social History Tobacco Use Types Packs/Day Years [...] on file Legal Sex Male 11:49 PM CORRECTIONAL LIEUTENANT Gender Identity Male 08/24/2019 8:41 AM CDT Sexual Orientation Straight 08/24/2019 8: 41 AM CDT Last Filed Vital Signs Vital Sign Reading [...] 05/29/2024 12:52 PM CDT Plan of Treatment Not on file Procedures Procedure Name Priority Date/Time Associated Diagnosis Comments EGFR Routine 09/08/2023 9:52 AM CDT Dizziness POCT HEMOGLOBIN A1C Routine 08/19/2023 8 :00 AM CDT Type 2 diabetes mellitus with complication (HCC) LIPID PANEL Routine 02/09/2023 8:29 AM CORRECTIONAL LIEUTENANT Preventative health care Hyperlipidemia, unspecified hyperlipidemia type ALBUMIN CREATININE RATIO, URINE Routine 02/09/2023 8:29 AM CORRECTIONAL LIEUTENANT Type 2 diabetes mellitus with diabetic mononeuropathy, with long-term current use of insulin (HCC) [facility] PSA, TOTAL AND FREE Routine 02/09/2023 8 :29 AM CORRECTIONAL LIEUTENANT Preventative health care Lower urinary tract symptoms (LUTS) Prostate cancer screening HM DIABETES FOOT EXAM Routine 08/28/2021 HEPATITIS C ANTIBODY Routine 02/13/2021 9:50 AM CORRECTIONAL LIEUTENANT Need for hepatitis C screening test DIABETES [...] CDT 09/08/2023 12:07 PM CDT Rupal Freire [facility] BLOOD ORDERABLES Final Result [facility] Department [place] [address] * POCT hemoglobin A1c (08/19/2023 8:00 AM CDT) Hemoglobin A1C, POC 6.3 % Blood 08/19/2023 8:00 AM CDT Claudia Gibbs MD POINT OF CARE TEST ORDERABLES Fi nal Result * Albumin Creatinine Ratio, Urine (02/09/2023 8:29 AM CORRECTIONAL LIEUTENANT) Albumin Ur <12.0 mg/L [facility] Comment: Interpretive Data No reference range established. Current interpretive data was last revised 2018. Creatinine Ur 161.5 mg/dL [facility] Comment: Interpretive Data No reference range established. Current interpretive data was last revised 2018. Albumin Creatinine Ratio, Ur <7 1 - 29 mg/g [facility] Urine 02/09/2023 8:29 AM CORRECTIONAL LIEUTENANT 02/09/2023 3:19 PM CORRECTIONAL LIEUTENANT Ciro Berger MD LAB URINE ORDERABLES Fin al Result [facility] [address] Department [place] [address] * PSA, total and free (02/09/2023 8:29 AM CORRECTIONAL LIEUTENANT) PSA-free 0.2 ng/mL [facility] PSA-Total 0.68 <=3.5 ng/mL [facility] PSA-Free/Total Ratio See Footnote [facility] Comment: Ratio not calculated because clinical [...] absence of malignant disease. Test Performed by: [address] [address] Corporate Relations Manager: Amor Patricio M.D. Ph.D.; CLIA# [id number] Blood 02/09/2023 8:29 AM CORRECTIONAL LIEUTENANT 02/09/2023 3:19 PM CORRECTIONAL LIEUTENANT us Ciro Berger MD LAB BLOOD ORDERABLES Fin al Result [facility] [address] Department [place] [address] * (ABNORMAL) Lipid panel (02/09/2023 8:29 AM CORRECTIONAL LIEUTENANT) Cholesterol 159 30 - 199 mg/dL [facility] [...] revised on 2017. Chol/HDL ratio 3 [facility] Blood 02/09/2023 8:29 AM CORRECTIONAL LIEUTENANT 02/09/2023 3:19 PM CORRECTIONAL LIEUTENANT us Cior Berger MD LAB BLOOD ORDERABLES Fin al Result [facility] [address] Department [place] [address] * DIABETES FOOT EXAM (08/28/2021) [facility] Diabetic Foot Exam Abnormal Historical Provider HEALTH MAINTENANCE Final Result * Hepatitis C antibody (02/13/2021 9:50 AM CORRECTIONAL LIEUTENANT) Hep C Ab Nonreactive Nonreactive [facility] Comment:Antibodies to HCV no t detected. Does NOT exclude the possibility of recent exposure to HCV. Blood 02/13/2021 9:50 AM CORRECTIONAL LIEUTENANT 02/13/2021 12:36 PM CORRECTIONAL LIEUTENANT Ciro Berger MD LAB MICROBIOLOGY - GENER AL ORDERABLES Edited Result - Final [facility] Department [place] [address] * DIABETES EYE EXAM (11/28/2020) Pathologist [facility] Diabetic Eye Exam Normal Historical Provider HEALTH MAINTENANCE Final Result * COLONOSCOPY (02/29/2016) Pathologist [facility] Colonoscopy Abnormal Historical Provider HEALTH MAINTENANCE Final Result from Last 3 Months or Most Recently Relevant to Health Maintenance Insurance [employer] [place] [employer] [place] [employer] [place]ICE [place] [employer] [place] Care Teams Assembly Lead Person Relationship Specialty Start Date End Date Ciro Berger MD [address] [place] [address] DR Prieto [address] [address] PCP - General 05/25/16 Lydia Hairston MD [address] [place] [address] Medical Oncologist/Hematologi st Hematology 09/30/17 Cecil Jewell MD [address] [place] [address] Referring Physician Endocrinology Diabetes & Metabolism 09/30/17 Leidy Durán MD [address] [place] [address] DR LAQUITA Garcia [address] [address] Referring Physician Gastroenterology 11/16/17 David David MD [address] [place] [address] DR LAQUITA Garcia [address] [address] Referring Physician General Surgery 02/01/18 Nader Martínez MD [address] [place] [address] Referring Physician Neurology 02/11/20
--- OUTSIDE RECORDS SUMMARY | 2024-06-19 02:13 | XMS_ITS | Encounter Summary ---
Author Organization [facility] Address [address] [place] [address] Care Team Providers Care Religious Education Coordinator Name Role Phone Satnam Liu DO Primary Care Provider Unav ailable Encounter Details Date Type Department Care Team (Late st Contact Info) Description 08/14/2002 Outpatient [facility] Primary Care - [address] [place] [phone] Liam Whitaker Social History Tobacco Use Types Packs/Day Years Used Date Smoking Tobacco: Never Assessed Sex and Gender Information Value Date Recorded Sex Assigned at Not on file Legal Sex Male 3:54 AM RN RELIEF CHARGE Gender Identity Not on file Sexual Orientation Not on file documented as of this encounter Plan of Treatment Not on file documented as of this encounter Visit Diagnoses Not on filedocumented in this encounter Care Teams Religious Education Coordinator Relationship Specialty Start Date End Date Satnam Liu DO PCP - General 02/12/15 documented as of this encounter
--- OUTSIDE RECORDS SUMMARY | 2024-06-19 02:13 | XMS_ITS | Encounter Summary ---
Author Organization [facility] Address [address] [place] [address] Care Team Providers Care Summer Law Clerk Name Role Phone Satnam Liu DO Primary Care Provider Unav ailable Encounter Details Date Type Department Care Team (Late st Contact Info) Description 09/25/2002 Outpatient [facility] Primary Care - [address] [place] [phone] Liam Whitaker Social History Tobacco Use Types Packs/Day Years Used Date Smoking Tobacco: Never Assessed Sex and Gender Information Value Date Recorded Sex Assigned at Not on file Legal Sex Male 3:54 AM MACHINE BOSS Gender Identity Not on file Sexual Orientation Not on file documented as of this encounter Plan of Treatment Not on file documented as of this encounter Visit Diagnoses Not on filedocumented in this encounter Care Teams Summer Law Clerk Relationship Specialty Start Date End Date Satnam Liu DO PCP - General 02/12/15 documented as of this encounter
--- OUTSIDE RECORDS SUMMARY | 2024-06-19 02:13 | XMS_ITS | Encounter Summary ---
Author Organization [facility] Address [address] [place] [address] Care Team Providers Care Coder Operator Name Role Phone Satnam Liu DO Primary Care Provider Unav ailable Encounter Details Date Type Department Care Team (Late st Contact Info) Description 01/24/2007 Outpatient [facility], [address] Kahlil Panchal MD NO ADDRESS ON FILE Social History Tobacco Use Types Packs/Day Years Used Date Smoking Tobacco: Never Assessed Sex and Gender Information Value Date Recorded Sex Assigned at Not on file Legal Sex Male 3:54 AM DIRECTOR OF BRAND MARKETING Gender Identity Not on file Sexual Orientation Not on file documented as of this encounter Plan of Treatment Not on file documented as of this encounter Procedures Procedure Name Priority Date/Time Associated Diagnosis Comments LIPID PANEL Routine 01/24/2007 10:30 AM DIRECTOR OF BRAND MARKETING COMPREHENSIVE METABOLIC PANEL Routine 01/24/2007 10:30 AM DIRECTOR OF BRAND MARKETING documented in this encounter Results * (ABNORMAL) LIPID PANEL (01/24/2007 10:30 AM DIRECTOR OF BRAND MARKETING) CHOLESTEROL 153 100 - 199 mg/dL INTERFACE SYSTEM TRIGLYCERIDE 380(H) 10 - 149 mg/dL INTERFACE SYSTEM HDL 43 40 - 59 mg/dL INTERFACE SYSTEM CHOL/HDL RATIO 3.6 2.0 - 5.0 INTER FACE SYSTEM LDL CALCULATED 34 <=99 mg/dL INTERFACE SYSTEM LIPID PANEL COMMENT See Below INTERFACE SYSTEM Comment: The adult ATP and pediatric NCEP classifications for lipids are available on the [facility] Intranet at: [email or web address] Select: Lab Policies and Procedures,Current Select: Lipid Panel Interpretation 01/24/2007 10:3 0 AM DIRECTOR OF BRAND MARKETING Kahlil Panchal MD CHEMISTRY ORDERABLES Ed ited INTERFACE SYSTEM Refer to clinic/hospital department * (ABNORMAL) COMPREHENSIVE METABOLIC PANEL (01/24/2007 10:30 AM DIRECTOR OF BRAND MARKETING) GLUCOSE 174(H) 65 - 99 mg/dL INTERFACE SYSTEM CREATININE 0.60(L) 0.67 - 1.17 mg/dL INTERFACE SYSTEM CALCIUM 9.4 8.4 - 10.2 mg/dL INTERFACE SYSTEM ALKALINE PHOSPHATASE 118 40 - 129 U/L INTERFACE SYSTEM AST 80(H) 12 - 38 U/L INTERFACE SYSTEM ALT 119(H) 0 - 41 U/L INTERFACE SYSTEM TOTAL PROTEIN 7.6 6.3 - 8.6 g/dL INTERFACE SYSTEM ALBUMIN 4.8 3.4 - 4.8 g/dL INTERFACE SYSTEM BILIRUBIN TOTAL 1.5(H) 0.2 - 1.0 mg/dL INTERFACE SYSTEM BUN 17 6 - 20 mg/dL INTERFACE SYSTEM SODIUM 135 135 - 145 mmol/L INTERFACE SYSTEM POTASSIUM 4.5 3.5 - 4.9 mmol/L INTERFACE SYSTEM CHLORIDE 96 96 - 108 mmol/L INTERFACE SYSTEM CO2 25 22 - 30 mmol/L INTERFACE SYSTEM GFR, >60 >=60 mL/min/1. 7 sq meter INTERFACE SYSTEM GFR >60 >=60 mL/min/1. 7 sq meter INTERFACE SYSTEM Comment: Estimated GFR rate interpretative information for both Americans and non- Americans is available on the [facility] Intranet at: [email or web address] Select: Lab Policies and Procedures Select: Reference Ranges - GFR 01/24/2007 10:3 0 AM DIRECTOR OF BRAND MARKETING Kahlil Panchal MD CHEMISTRY ORDERABLES Ed ited INTERFACE SYSTEM Refer to clinic/hospital department documented in this encounter Visit Diagnoses Not on filedocumented in this encounter Care Teams Coder Operator Relationship Specialty Start Date End Date Satnam Liu DO PCP - General 02/12/15 documented as of this encounter
--- OUTSIDE RECORDS SUMMARY | 2024-06-19 02:13 | XMS_ITS | Encounter Summary ---
Author Organization [facility] Address [address] [place] [address] Care Team Providers Care Leno Sewer Name Role Phone Satnam Liu DO Primary Care Provider Unav ailable Encounter Details Date Type Department Care Team (Late st Contact Info) Description 12/03/2005 Orders Only [facility] Primary Care - [address] [place] [address] Carmelo Sher MD [address] [facility] [address] [place], [place] [id number] Social History Tobacco Use Types Packs/Day Years Used Date Smoking Tobacco: Never Assessed Sex and Gender Information Value Date Recorded Sex Assigned at Not on file Legal Sex Male 3:54 AM FLARER Gender Identity Not on file Sexual Orientation Not on file documented as of this encounter Progress Notes * Carmelo Sher MD - 12/12/2007 8:01 PM CDT BLOOD PRESSURE: 110/70 Left Arm Sitting TEMPERATURE: 98.4??f Oral WEIGHT: 231lbs NURSE NAME: Kellie Paredes M ALLERGIES: No known drug allergies. MEDICATIONS: Medications may have changed. Dr to review medications. CHIEF COMPLAINT Patient here for follow up diabetes, hyperlipidemia. HISTORY: HISTORY: 250.00-DM II CONTROLLED The patient denies polyuria, polyphagia, polydipsia, change in vision, footulcerations, or hypoglycemic episodes. 346.00-MIGRAINE discussed eckert medication and use of tylenol with codeine CURRENT PROBLEM LIST: 250.00 DM II CONTROLLED 272.4 HYPERLIPIDEMIA 300.00 ANXIETY 311 DEPRESSION 346.00 MIGRAINE 524.64 TMJ SOUNDS OPENING &OR CLOSING JAW 530.81 GASTROESOPHAGEAL REFLUX (GERD) 564.1 IRRITABLE BOWEL SYNDROME 719.41 PAIN JOINT SHOULDER V70.0 ROUTINE GENERAL MEDICAL EXAMINATION CURRENT MEDICATION LIST: FLONASE NASAL SUSPENSION 50 MCG/ACT, 2 SPRAYS EACH NOSTRIL Q D ONE TOUCH ULTRASOFT LANCETS MISCELLANEOUS, as directed ONE TOUCH ULTRA TEST IN VITRO STRIP, use as directed NAPROXEN ORAL TABLET ENTERIC COATED 500 MG, 1 with food B.I.D. for shoulder pain XANAX ORAL TABLET 0.25 MG, 1 tab each day as needed METFORMIN HCL ORAL TABLET 500 MG, 2 tabs twice daily with food NEXIUM ORAL CAPSULE DELAYED RELEASE 40 MG, 1 Every Day MAXALT-MACHINE CARTON MARKER ORAL TABLET DISPERSIBLE 10 MG, 1 po @ ECKERT onset, repeat P4hrbbs prn Max of 3 tabs in 24 hours GLIPIZIDE ORAL TABLET 24 HR 10 MG, 1 tab before meal each day CITALOPRAM HYDROBROMIDE ORAL TABLET 40 MG, 1 Every Day ACTOS ORAL TABLET 15 MG, 1 Every Day CURRENT ALLERGY LIST: NKDA ROS: GENERAL: Normal activity and energy level, no change in appetite. No major weight gain or loss. No malaise, chills, fever, diaphoresis.. ENT: No hearing loss, epistaxis, hoarseness or dysphagia. No sinus congestion.. ENDOCRINE: No heat or cold intolerance, no excessive thirst.. CARDIAC: No chest pain, palpitations, orthopnea, dyspnea on exertion, or paroxysmal nocturnal dyspnea.. RESPIRATORY: No dyspnea, cough, hemoptysis or wheezing.. : No dysuria or hematuria.. GI: No abdominal pain, nausea, vomiting, diarrhea, constipation, melena, or hematochezia.. PHYSICAL EXAMINATION: CONSTITUTIONAL: GENERAL APPEARANCE: Healthy appearing [...] or nodularity. Kidneys not palpable. MUSCULOSKELETAL EXAM: EXTREMITIES: DIABETIC II FOOT EXAM: The patient`s diabetic foot exam is within normal limits. Negative for callous, ulcers, tinea pedis, onychomycosis, arterial insufficiency or neuropathy. ASSESSMENT/PLAN: 250.00-DM II CONTROLLED has seen opthamologist recently and had no diabetic retinopathy ASSESSMENT: reviewed lifestyle changes at length, patient seemed offended, did not seem interested? LAB ORDERS: Order number: [id number] Test Ordered: COMPREHENSIVE METABOLIC PANEL & GFR 1099 Order number: [id number] Test Ordered: TSH 1720 Order number: [id number] Test Ordered: HEMOGLOBIN A1C 1814 Order number: [id number] Test Ordered: LIPID PANEL 1078 311-DEPRESSION denied this diagnosis, although discussed at length ASSESSMENT: The patient's depression remains stable. Will not change medication, continue to monitor for complications. 346.00-MIGRAINE REFUSED TO SIGN controlled substance agreement? I advised him that monthly refills of this medication was not an ideal tx for migraine. I am willing to do it but I want simple documentation and verification of understanding that this is a controlled substance. No further refills at this time. 530.81-GASTROESOPHAGEAL REFLUX (GERD) discussed role of surveillence MEDICATIONS: NEXIUM ORAL CAPSULE DELAYED RELEASE 40 MG, 1 Every Day, 90 Dispensed, 3 Fills, status: NEW PRESCRIPTION, 12/03/2005. FIORINAL/CODEINE #3 ORAL CAPSULE CONVENTIONAL [id number] MG, 1-2 tabs po bid prn headache, 30 Dispensed, 3 Fills, status: CONTINUED, 12/03/2005. IMITREX ORAL TABLET 100 MG, as directed, 27 Dispensed, 3 Fills, 30 Duration/Days Supply, status: DISCONTINUED HISTORY, 12/03/2005. Electronically Signed by: Carmelo Sher MD on Tuesday, January 01, 2006 documented in this encounter Plan of Treatment Not on file documented as of this encounter Visit Diagnoses Not on filedocumented in this encounter Care Teams Leno Sewer Relationship Specialty Start Date End Date Satnam Liu DO PCP - General 02/12/15 documented as of this encounter
--- OUTSIDE RECORDS SUMMARY | 2024-06-19 02:13 | XMS_ITS | Encounter Summary ---
Author Organization [facility] Address [address] [place] [address] Care Team Providers Care Lunchroom Operator Name Role Phone Satnam Liu DO Primary Care Provider Unav ailable Encounter Details Date Type Department Care Team (Late st Contact Info) Description 06/11/1999 Outpatient Historical [facility] Tristan [facility] [place] [id number] Er, Authorized P NO ADDRESS ON FILE Abdominal pain, unspecified site (Primary Dx) Social History Tobacco Use Types Packs/Day Years Used Date Smoking Tobacco: Never Assessed Sex and Gender Information Value Date Recorded Sex Assigned at Not on file Legal 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
--- OUTSIDE RECORDS SUMMARY | 2024-06-19 02:13 | XMS_ITS | Encounter Summary ---
Author Organization [facility] Address 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
--- OUTSIDE RECORDS SUMMARY | 2024-06-19 02:13 | XMS_ITS | Encounter Summary ---
Author Organization [facility] Address [address] [place] [address] Care Team Providers Care Legal Coordinator Name Role Phone Satnam Liu DO Primary Care Provider Unav ailable Encounter Details Date Type Department Care Team (Late st Contact Info) Description 02/04/2006 Orders Only [facility] Primary Care - [address] [place] [address] Carmelo Sher MD [address] [facility] [address] [place], [place] [phone] Social History Tobacco Use Types Packs/Day Years Used Date Smoking Tobacco: Never Assessed Sex and Gender Information Value Date Recorded Sex Assigned at Not on file Legal Sex Male 3:54 AM CUSTOMER RELATIONS 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
--- OUTSIDE RECORDS SUMMARY | 2024-06-19 02:13 | XMS_ITS | Encounter Summary ---
Author Organization [facility] Address [address] [place] [address] Care Team Providers Care Java Web Application Developer Name Role Phone Satnam Liu DO Primary Care Provider Unav ailable Encounter Details Date Type Department Care Team (Late st Contact Info) Description 04/18/2003 Outpatient [facility] Primary Care - [address] [place] [phone] Liam Whitaker Social History Tobacco Use Types Packs/Day Years Used Date Smoking Tobacco: Never Assessed Sex and Gender Information Value Date Recorded Sex Assigned at Not on file Legal Sex Male 3:54 AM TELEPHONE ENGINEER Gender Identity Not on file Sexual Orientation Not on file documented as of this encounter Plan of Treatment Not on file documented as of this encounter Visit Diagnoses Not on filedocumented in this encounter Care Teams Java Web Application Developer Relationship Specialty Start Date End Date Satnam Liu DO PCP - General 02/12/15 documented as of this encounter
--- OUTSIDE RECORDS SUMMARY | 2024-06-19 02:13 | XMS_ITS | Encounter Summary ---
Author Organization [facility] Address [address] [place] [address] Care Team Providers Care Hot End Operator Name Role Phone Satnam Liu DO Primary Care Provider Unav ailable Encounter Details Date Type Department Care Team (Late st Contact Info) Description 09/29/1999 Outpatient [facility] [address] [facility] [address] Layo Ramirez [place] [phone] Humberto Siu Social History Tobacco Use Types Packs/Day Years Used Date Smoking Tobacco: Never Assessed Sex and Gender Information Value Date Recorded Sex Assigned at Not on file Legal Sex Male 3:54 AM EDITORIAL INTERN Gender Identity Not on file Sexual Orientation Not on file documented as of this encounter Plan of Treatment Not on file documented as of this encounter Visit Diagnoses Not on filedocumented in this encounter Care Teams Hot End Operator Relationship Specialty Start Date End Date Satnam Liu DO PCP - General 02/12/15 documented as of this encounter
--- OUTSIDE RECORDS SUMMARY | 2024-06-19 02:13 | XMS_ITS | Encounter Summary ---
Author Organization [facility] Address 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 Gender Identity Not on file Sexual Orientation Not on file documented as of this encounter Plan of Treatment Not on file documented as of this encounter Procedures Procedure Name Priority Date/Time Associated Diagnosis Comments LIPID PANEL Routine 06/03/2006 3:00 PM CDT COMPREHENSIVE METABOLIC PANEL Routine 06/03/2006 3:00 PM CDT documented in this encounter Results * (ABNORMAL) LIPID PANEL (06/03/2006 3:00 PM CDT) CHOLESTEROL 169 100 - 199 mg/dL INTERFACE SYSTEM TRIGLYCERIDE 188(H) 10 - 149 mg/dL INTERFACE SYSTEM HDL 53 40 - 59 mg/dL INTERFACE SYSTEM CHOL/HDL RATIO 3.2 2.0 - 5.0 INTER FACE SYSTEM LDL CALCULATED 78 <=99 mg/dL INTERFACE SYSTEM LIPID PANEL COMMENT See Below INTERFACE SYSTEM Comment: The adult ATP and pediatric NCEP classifications for lipids are available on the [facility] Intranet at: [email or web address] Select: Lab Policies and Procedures Select: Reference Ranges - Lipids 06/03/2006 3:00 PM CDT Kahlil Panchal MD CHEMISTRY ORDERABLES Ed ited Performing Organization Address City/[facility]/ZIP Co de Phone Number INTERFACE SYSTEM Refer to clinic/hospital department * (ABNORMAL) COMPREHENSIVE METABOLIC PANEL (06/03/2006 3:00 PM CDT) GLUCOSE 73 65 - 99 mg/dL INTERFACE SYSTEM CREATININE 0.73 0.67 - 1.17 mg/dL INTERFACE SYSTEM CALCIUM 9.3 8.4 - 10.2 mg/dL INTERFACE SYSTEM ALKALINE PHOSPHATASE 72 40 - 129 U/L INTERFACE SYSTEM AST 41(H) 12 - 38 U/L INTERFACE SYSTEM ALT 49(H) 0 - 41 U/L INTERFACE SYSTEM TOTAL PROTEIN 7.3 6.3 - 8.6 g/dL INTERFACE SYSTEM ALBUMIN 4.6 3.4 - 4.8 g/dL INTERFACE SYSTEM BILIRUBIN TOTAL 1.2(H) 0.2 - 1.0 mg/dL INTERFACE SYSTEM BUN 15 6 - 20 mg/dL INTERFACE SYSTEM SODIUM 138 135 - 145 mmol/L INTERFACE SYSTEM POTASSIUM 3.7 3.5 - 4.9 mmol/L INTERFACE SYSTEM CHLORIDE 100 96 - 108 mmol/L INTERFACE SYSTEM CO2 27 22 - 30 mmol/L INTERFACE SYSTEM GFR, >60 >=60 mL/min/1. 7 sq meter INTERFACE SYSTEM GFR >60 >=60 mL/min/1. 7 sq meter INTERFACE SYSTEM Comment: Estimated GFR rate interpretative information for both Americans and non- Americans is available on the [facility] Intranet at: [email or web address] Select: Lab Policies and Procedures Select: Reference Ranges - GFR 06/03/2006 3:00 PM CDT Kahlil Panchal MD CHEMISTRY ORDERABLES Ed ited INTERFACE SYSTEM Refer to clinic/hospital department documented in this encounter Visit Diagnoses Not on filedocumented in this encounter Care Teams Aeronautical Inspector Relationship Specialty Start Date End Date Satnam Liu DO PCP - General 02/12/15 documented as of this encounter
--- OUTSIDE RECORDS SUMMARY | 2024-06-19 02:13 | XMS_ITS | Encounter Summary ---
Author Organization [facility] Address 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 Gender Identity Not on file Sexual Orientation Not on file documented as of this encounter Plan of Treatment Not on file documented as of this encounter Procedures Procedure Name Priority Date/Time Associated Diagnosis Comments CBC WITH DIFFERENTIAL Routine 06/01/2007 7:11 PM CDT TSH Routine 06/01/2007 7:11 PM CDT LIPID PANEL Routine 06/01/2007 7:11 PM CDT COMPREHENSIVE METABOLIC PANEL Routine 06/01/2007 7:11 PM CDT documented in this encounter Results * TSH (06/01/2007 7:11 PM CDT) TSH 1.42 0.27 - 4.20 uU/mL [facility] Blood specimen (specimen) 06/01/2007 7:11 PM CDT 06/01/2007 7:38 PM CDT Kahlil Panchal MD CHEMISTRY ORDERABLES Fi nal Result Performing Organization Address [facility] Co de Phone Number [facility] [address] [place] [address] * (ABNORMAL) LIPID PANEL (06/01/2007 7:11 PM CDT) Pathologist [facility] CHOL/HDL RATIO 2.8 2.0 - 5.0 [facility] TRIGLYCERIDE 183(H) 10 - 149 mg/dL [facility] HDL 50 40 - 59 mg/dL [facility] CHOLESTEROL 139 100 - 199 mg/dL [facility] LDL CALCULATED 52 <=99 mg/dL [facility] LIPID PANEL COMMENT See Below [facility] Comment: The adult ATP and pediatric NCEP classifications for lipids are available on the [facility] Intranet at: [email or web address] Select: Lab Policies and Procedures,Current Select: Lipid Panel Interpretation Blood specimen (specimen) 06/01/2007 7:11 PM CDT 06/01/2007 7:38 PM CDT Kahlil Panchal MD CHEMISTRY ORDERABLES Ed ited Performing Organization Address City/[facility] Co de Phone Number [facility] [address] [place] [address] * (ABNORMAL) COMPREHENSIVE METABOLIC PANEL (06/01/2007 7:11 PM CDT) SODIUM 139 135 - 145 mmol/L [facility] ALT 43(H) 0 - 41 U/L [facility] ALKALINE PHOSPHATASE 84 40 - 129 U/L [facility] BILIRUBIN TOTAL 2.0(H) 0.2 - 1.0 mg/dL [facility] CO2 25 22 - 30 mmol/L [facility] TOTAL PROTEIN 7.5 6.3 - 8.6 g/dL [facility] POTASSIUM 4.8 3.5 - 4.9 mmol/L [facility] GLUCOSE 98 65 - 99 mg/dL [facility] AST 39(H) 12 - 38 U/L [facility] BUN 14 6 - 20 mg/dL [facility] CALCIUM 9.8 8.4 - 10.2 mg/dL [facility] CHLORIDE 99 96 - 108 mmol/L [facility] ALBUMIN 4.9(H) 3.4 - 4.8 g/dL [facility] CREATININE 0.76 0.67 - 1.17 mg/dL [facility] GFR, >60 >=60 mL/min/1. 7 sq meter [facility] GFR >60 >=60 mL/min/1. 7 sq meter [facility] Comment: Estimated GFR rate interpretative information for both Americans and non- Americans is available on the [facility] Intranet at: [email or web address] Select: Lab Policies and Procedures Select: Reference Ranges - GFR Blood specimen (specimen) 06/01/2007 7:11 PM CDT 06/01/2007 7:38 PM CDT us Kahlil Panchal MD CHEMISTRY ORDERABLES Ed ited [facility] [address] [address] * (ABNORMAL) CBC WITH DIFFERENTIAL (06/01/2007 7:11 PM CDT) RDW-STDEV 41.2 37.1 - 48.7 fL [facility] RBC 5.23 4.50 - 5.40 M/uL [facility] MCHC 32.7 31.5 - 35.5 % [facility] MCV 85.5 82.0 - 99.0 fL [facility] PLATELETS 214 140 - 350 K/uL [facility] HEMOGLOBIN 14.6 13.6 - 16.5 g/dL [facility] RDW 13.2 11.5 - 14.5 % [facility] WBC 8.4 4.0 - 9.8 K/uL [facility] MCH 27.9 27.2 - 32.6 pg [facility] MPV 13.2(H) 9.3 - 12.4 fL [facility] HEMATOCRIT 44.7 40.0 - 48.0 % [facility] MONOCYTES 7 3 - 13 % [facility] MONOCYTE ABSOLUTE 0.55 0.10 - 1.30 K/uL [facility] NEUTROPHILS 59 45 - 70 % [facility] NEUTROPHIL ABSOLUTE 4.89 1.90 - 7.00 K/uL [facility] EOSINOPHILS 6 0 - 7 % [facility] EOSINOPHIL ABSOLUTE 0.50 0.00 - 0.70 K/uL [facility] LYMPHOCYTES 28 16 - 45 % [facility] LYMPHOCYTE ABSOLUTE 2.36 0.70 - 4.50 K/uL [facility] BASOPHILS 1 0 - 2 % [facility] BASOPHILS ABSOLUTE 0.06 0.00 - 0.20 K/uL [facility] Blood specimen (specimen) 06/01/2007 7:11 PM CDT 06/01/2007 7:38 PM CDT us Kahlil Panchal MD HEMATOLOGY ORDERABLES E dited INTERFACE SYSTEM Refer to clinic/hospital department [facility] [address] [place] [address] documented in this encounter Visit Diagnoses Diagnosis Other and unspecified hyperlipidemia Unspecified essential hypertension documented in this encounter Care Teams Tan Room Supervisor Relationship Specialty Start Date End Date Satnam Liu DO PCP - General 02/12/15 documented as of this encounter
--- OUTSIDE RECORDS SUMMARY | 2024-06-19 02:13 | XMS_ITS | Encounter Summary ---
Author Organization [employer] [facility] Address 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
--- OUTSIDE RECORDS SUMMARY | 2024-06-19 02:13 | XMS_ITS | Encounter Summary ---
Author Organization [facility] Address [address] [place] [address] Care Team Providers Care Machine Splitter Name Role Phone Satnam iLu DO Primary Care Provider Unav ailable Encounter Details Date Type Department Care Team (Late st Contact Info) Description 01/06/[address] 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
--- OUTSIDE RECORDS SUMMARY | 2024-06-19 02:13 | XMS_ITS | Encounter Summary ---
Author Organization [facility] Address [address] [place] [address] Care Team Providers Care Armored Service Technician Name Role Phone Satnam Liu DO Primary Care Provider Unav ailable Encounter Details Date Type Department Care Team (Late st Contact Info) Description 08/17/2005 Orders Only [facility] Primary Care - [address] [place] [address] Carmelo Sher MD [address] [facility] [address] [place], [place] [id number] Social History Tobacco Use Types Packs/Day Years Used Date Smoking Tobacco: Never Assessed Sex and Gender Information Value Date Recorded Sex Assigned at Not on file 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
--- OUTSIDE RECORDS SUMMARY | 2024-06-19 02:13 | XMS_ITS | Encounter Summary ---
Author Organization [facility] Address 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
--- OUTSIDE RECORDS SUMMARY | 2024-06-19 02:13 | XMS_ITS | Encounter Summary ---
Author Organization [facility] Address [address] [place] [address] Care Team Providers Care Commercial Maintenance Technician Name Role Phone Satnam Liu DO Primary Care Provider Unav ailable Encounter Details Date Type Department Care Team (Late st Contact Info) Description 07/30/1999 Outpatient [facility] Internal Medicine [facility] [address] [facility] [address] [place] [place] [phone] Humberto Siu Social History Tobacco Use Types Packs/Day Years Used Date Smoking Tobacco: Never Assessed Sex and Gender Information Value Date Recorded Sex Assigned at Not on file Legal 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
--- OUTSIDE RECORDS SUMMARY | 2024-06-19 02:13 | XMS_ITS | Encounter Summary ---
Author Organization [employer] Address [address] [place] [address] Care Team Providers Care Head Strength And Conditioning Coach Name Role Phone Satnam Liu DO Primary Care Provider Unav ailable Encounter Details Date Type Department Care Team (Late st Contact Info) Description 03/01/2006 Outpatient Historical [facility], [address] Kahlil Panchal MD NO ADDRESS ON FILE Social History Tobacco Use Types Packs/Day Years Used Date Smoking Tobacco: Never Assessed Sex and Gender Information Value Date Recorded Sex Assigned at Not on file Legal Sex Male 3:54 AM SLP Gender Identity Not on file Sexual Orientation Not on file documented as of this encounter Plan of Treatment Not on file documented as of this encounter Procedures Procedure Name Priority Date/Time Associated Diagnosis Comments CBC WITH DIFFERENTIAL Routine 03/01/2006 11:00 AM SLP CBC WITH DIFFERENTIAL Routine 03/01/2006 11:00 AM SLP TSH Routine 03/01/2006 11:00 AM SLP LIPID PANEL Routine 03/01/2006 11:00 AM SLP COMPREHENSIVE METABOLIC PANEL Routine 03/01/2006 11:00 AM SLP documented in this encounter Results * CBC WITH DIFFERENTIAL (03/01/2006 11:00 AM SLP) NEUTROPHILS 55 45 - 70 % INTERFAC E SYSTEM LYMPHOCYTES 31 16 - 45 % INTERFAC E SYSTEM MONOCYTES 8 3 - 13 % INTERFACE SYSTEM EOSINOPHILS 4 0 - 7 % INTERFAC E SYSTEM BASOPHILS 1 0 - 2 % INTERFACE SYSTEM NEUTROPHIL ABSOLUTE 4.65 1.90 - 7.00 K/uL INTERFACE SYSTEM LYMPHOCYTE ABSOLUTE 2.65 0.70 - 4.50 K/uL INTERFACE SYSTEM MONOCYTE ABSOLUTE 0.70 0.10 - 1.30 K/uL INTERFACE SYSTEM EOSINOPHIL ABSOLUTE 0.34 0.00 - 0.70 K/uL INTERFACE SYSTEM BASOPHILS ABSOLUTE 0.09 0.00 - 0.20 K/uL INTERFACE SYSTEM 03/01/2006 11:0 0 AM SLP Kahlil Panchal MD HEMATOLOGY ORDERABLES E dited INTERFACE SYSTEM Refer to clinic/hospital department * CBC WITH DIFFERENTIAL (03/01/2006 11:00 AM SLP) WBC 8.4 4.0 - 9.8 K/uL INTERFACE SYSTEM RBC 5.39 4.50 - 5.40 M/uL INTERFACE SYSTEM HEMOGLOBIN 15.4 13.6 - 16.5 g/dL INTERFACE SYSTEM HEMATOCRIT 45.5 40.0 - 48.0 % INTERFACE SYSTEM MCV 84.4 82.0 - 99.0 fL INTERFACE SYSTEM MCH 28.6 27.2 - 32.6 pg INTERFACE SYSTEM MCHC 33.8 31.5 - 35.5 % INTERFACE SYSTEM RDW 13.2 11.5 - 14.5 % INTERFACE SYSTEM RDW-STDEV 40.2 37.1 - 48.7 fL INTERFACE SYSTEM PLATELETS 237 140 - 350 K/uL INTERFACE SYSTEM MPV 12.2 9.3 - 12.4 fL INTERFACE SYSTEM 03/01/2006 11:0 0 AM SLP Kahlil Panchal MD HEMATOLOGY ORDERABLES E dited INTERFACE SYSTEM Refer to clinic/hospital department * TSH (03/01/2006 11:00 AM SLP) TSH 3.30 0.27 - 4.20 uU/mL INTERFACE SYSTEM 03/01/2006 11:0 0 AM SLP Kahlil Panchal MD CHEMISTRY ORDERABLES Ed ited Performing Organization Address City/State/[facility] Co de Phone Number INTERFACE SYSTEM Refer to clinic/hospital department * (ABNORMAL) LIPID PANEL (03/01/2006 11:00 AM SLP) CHOLESTEROL 299(H) 100 - 199 mg/dL INTERFACE SYSTEM TRIGLYCERIDE 720(H) 10 - 149 mg/dL INTERFACE SYSTEM HDL 48 40 - 59 mg/dL INTERFACE SYSTEM LDL CALCULATED Parameter N/A. <=99 mg/dL INTERFACE SYSTEM CHOL/HDL RATIO 6.2(H) 2.0 - 5.0 INTERFACE SYSTEM LIPID PANEL COMMENT See Below INTERFACE SYSTEM Comment: The adult ATP and pediatric NCEP classifications for lipids are available on the [facility] Intranet at: [email or web address] Select: Lab Policies and Procedures Select: Reference Ranges - Lipids 03/01/2006 11:0 0 AM SLP Kahlil Panchal MD CHEMISTRY ORDERABLES Ed ited Performing Organization Address [facility] de Phone Number INTERFACE SYSTEM Refer to clinic/hospital department * (ABNORMAL) COMPREHENSIVE METABOLIC PANEL (03/01/2006 11:00 AM SLP) GLUCOSE 120(H) 65 - 99 mg/dL INTERFACE SYSTEM CREATININE 0.80 0.67 - 1.17 mg/dL INTERFACE SYSTEM CALCIUM 10.0 8.4 - 10.2 mg/dL INTERFACE SYSTEM ALKALINE PHOSPHATASE 91 40 - 129 U/L INTERFACE SYSTEM AST 31 12 - 38 U/L INTERFACE SYSTEM ALT 49(H) 0 - 41 U/L INTERFACE SYSTEM TOTAL PROTEIN 8.0 6.3 - 8.6 g/dL INTERFACE SYSTEM ALBUMIN 5.1(H) 3.4 - 4.8 g/dL INTERFACE SYSTEM BILIRUBIN TOTAL 0.7 0.2 - 1.0 mg/dL INTERFACE SYSTEM BUN 14 6 - 20 mg/dL INTERFACE SYSTEM SODIUM 140 135 - 145 mmol/L INTERFACE SYSTEM POTASSIUM 5.0(H) 3.5 - 4.9 mmol/L INTERFACE SYSTEM Comment:No significant hemol ysis CHLORIDE 100 96 - 108 mmol/L INTERFACE SYSTEM CO2 27 22 - 30 mmol/L INTERFACE SYSTEM GFR, >60 >=60 mL/min/1. 7 sq meter INTERFACE SYSTEM GFR >60 >=60 mL/min/1. 7 sq meter INTERFACE SYSTEM Comment: Estimated GFR rate interpretative information for both Americans and non- Americans is available on the [facility] Intranet at: [email or web address] Select: Lab Policies and Procedures Select: Reference Ranges - GFR 03/01/2006 11:0 0 AM SLP us Kahlil Panchal MD CHEMISTRY ORDERABLES Ed ited INTERFACE SYSTEM Refer to clinic/hospital department documented in this encounter Visit Diagnoses Not on filedocumented in this encounter Care Teams Head Strength And Conditioning Coach Relationship Specialty Start Date End Date Satnam Liu DO PCP - General 02/12/15 documented as of this encounter
--- OUTSIDE RECORDS SUMMARY | 2024-06-19 02:13 | XMS_ITS | Encounter Summary ---
Author Organization [facility] Address 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
--- OUTSIDE RECORDS SUMMARY | 2024-06-19 02:13 | XMS_ITS | Encounter Summary ---
Author Organization [employer] Address 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 Gender Identity Not on file Sexual Orientation Not on file documented as of this encounter Plan of Treatment Not on file documented as of this encounter Procedures Procedure Name Priority Date/Time Associated Diagnosis Comments LIPID PANEL Routine 10/01/2006 9:32 AM CDT COMPREHENSIVE METABOLIC PANEL Routine 10/01/2006 9:32 AM CDT documented in this encounter Results * (ABNORMAL) LIPID PANEL (10/01/2006 9:32 AM CDT) CHOLESTEROL 148 100 - 199 mg/dL INTERFACE SYSTEM TRIGLYCERIDE 184(H) 10 - 149 mg/dL INTERFACE SYSTEM HDL 44 40 - 59 mg/dL INTERFACE SYSTEM CHOL/HDL RATIO 3.4 2.0 - 5.0 INTER FACE SYSTEM LDL CALCULATED 67 <=99 mg/dL INTERFACE SYSTEM LIPID PANEL COMMENT See Below INTERFACE SYSTEM Comment: The adult ATP and pediatric NCEP classifications for lipids are available on the [facility] Intranet at: [email or web address] Select: Lab Policies and Procedures Select: Reference Ranges - Lipids 10/01/2006 9:32 AM CDT Kahlil Panchal MD CHEMISTRY ORDERABLES Ed ited Performing Organization Address City/[facility]/ZIP Co de Phone Number INTERFACE SYSTEM Refer to clinic/hospital department * (ABNORMAL) COMPREHENSIVE METABOLIC PANEL (10/01/2006 9:32 AM CDT) GLUCOSE 166(H) 65 - 99 mg/dL INTERFACE SYSTEM CREATININE 0.81 0.67 - 1.17 mg/dL INTERFACE SYSTEM CALCIUM 9.1 8.4 - 10.2 mg/dL INTERFACE SYSTEM ALKALINE PHOSPHATASE 75 40 - 129 U/L INTERFACE SYSTEM AST 42(H) 12 - 38 U/L INTERFACE SYSTEM ALT 53(H) 0 - 41 U/L INTERFACE SYSTEM TOTAL PROTEIN 7.0 6.3 - 8.6 g/dL INTERFACE SYSTEM ALBUMIN 4.5 3.4 - 4.8 g/dL INTERFACE SYSTEM BILIRUBIN TOTAL 1.2(H) 0.2 - 1.0 mg/dL INTERFACE SYSTEM BUN 16 6 - 20 mg/dL INTERFACE SYSTEM SODIUM 139 135 - 145 mmol/L INTERFACE SYSTEM POTASSIUM 4.8 3.5 - 4.9 mmol/L INTERFACE SYSTEM CHLORIDE 103 96 - 108 mmol/L INTERFACE SYSTEM CO2 26 22 - 30 mmol/L INTERFACE SYSTEM GFR, >60 >=60 mL/min/1. 7 sq meter INTERFACE SYSTEM GFR >60 >=60 mL/min/1. 7 sq meter INTERFACE SYSTEM Comment: Estimated GFR rate interpretative information for both Americans and non- Americans is available on the [facility] Intranet at: [email or web address] Select: Lab Policies and Procedures Select: Reference Ranges - GFR 10/01/2006 9:32 AM CDT Kahlil Panchal MD CHEMISTRY ORDERABLES Ed ited INTERFACE SYSTEM Refer to clinic/hospital department documented in this encounter Visit Diagnoses Not on filedocumented in this encounter Care Teams Wad Compressor Operator Adjuster Relationship Specialty Start Date End Date Satnam Liu DO PCP - General 02/12/15 documented as of this encounter
--- OUTSIDE RECORDS SUMMARY | 2024-06-19 02:13 | XMS_ITS | Encounter Summary ---
Author Organization [facility] Address [address] [place] [address] Care Team Providers Care Churn Operator Margarine Name Role Phone Satnam Liu DO Primary Care Provider Unav ailable Encounter Details Date Type Department Care Team (Late st Contact Info) Description 12/03/2005 Outpatient Historical [facility] Primary Care - [address] [place] [address] Carmelo Sher MD [address] [facility] [address] [place], [place] [id number] Social History Tobacco Use Types Packs/Day Years Used Date Smoking Tobacco: Never Assessed Sex and Gender Information Value Date Recorded Sex Assigned at Not on file Legal 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
--- OUTSIDE RECORDS SUMMARY | 2024-06-19 02:13 | XMS_ITS | Encounter Summary ---
Author Organization [employer] Address [address] [place] [address] Care Team Providers Care Installation Engineer Name Role Phone Satnam Liu DO Primary Care Provider Unav ailable Encounter Details Date Type Department Care Team (Latest Contact Info) Description 01/11/2003 Outpatient Historical [facility] Morris Echevarria MD NO ADDRESS ON FILE ANAL FISSURE (Primary Dx) Social History Tobacco Use Types Packs/Day Years Used Date Smoking Tobacco: Never Assessed Sex and Gender Information Value Date Recorded Sex Assigned at Not on file Legal Sex Male 3:54 AM CARDIO CLINICIAN Gender Identity Not on file Sexual Orientation Not on file documented as of this encounter Plan of Treatment Not on file documented as of this encounter Visit Diagnoses Diagnosis Anal fissure- Primary documented in this encounter Care Teams Installation Engineer Relationship Specialty Start Date End Date Satnam Liu DO PCP - General 02/12/15 documented as of this encounter
--- NOTE | 2024-06-19 07:24 | P.PNAN_ITS ---
Anes - Initial Pre Proc Eval Procedure: Operation Date: 06/19/24 08:30 Proposed Procedures p Screening Colonoscopy - Evaristo Wilkerson MD Date/Time: 06/19/24 07:24 Surgeon: Evaristo Wilkerson MD Pre Op Diagnosis: malignant neoplsm of colon Patient Data Age: 59 Gender: M Height: 1.83 m Weight: 84 kg Allergies Allergy/AdvReac Type Severity Reaction Status Date / Time No Known Allergies Allergy Verified 06/08/24 13:28 Home Medications ?Medication ?Instructions ?Recorded ?Confirmed ?Type atorvastatin 40 mg tablet (Lipitor) 40 mg PO HS 11/25/19 06/19/24 History famotidine 20 mg tablet (Pepcid) 20 mg PO DAILY 11/25/19 06/19/24 History insulin glargine 100 unit/mL 30 unit subcut DAILY 11/25/19 06/19/24 History subcutaneous solution (Lantus U-100 Insulin) insulin lispro 100 unit/mL 15 unit subcut TID 11/25/19 06/19/24 History subcutaneous cartridge (Humalog U-100 Insulin) metformin 500 mg tablet 1,000 mg PO BID 02/22/23 06/19/24 History alprazolam 0.5 mg tablet 0.5 mg PO DAILY PRN Anxiety 04/04/23 06/08/24 History ferrous sulfate 325 mg (65 mg 325 mg PO DAILY 04/04/23 06/19/24 History iron) tablet tamsulosin 0.4 mg capsule 0.4 mg PO DAILY 04/04/23 06/19/24 History venlafaxine 225 mg tablet,extended 225 mg PO DAILY 04/04/23 06/19/24 History release 24 hr sfkgtwm-yakawhsjmolff-twbmozch 250 1 tablet PO Q4-6H PRN Migraine 04/13/23 06/08/24 History mg-250 mg-65 mg tablet (Excedrin Headache Migraine) empagliflozin 25 mg tablet 25 mg PO DAILY 04/13/23 06/19/24 History (Jardiance) polyethylene glycol 3350 17 17 g PO DAILY 04/13/23 06/19/24 History gram/dose oral powder (Miralax) sumatriptan succinate 100 mg tablet 100 mg PO BID PRN Migraine Headache 04/13/23 06/08/24 History vitamin B complex 1 tablet PO DAILY 04/13/23 06/19/24 History omega-3 fatty acids-fish oil 300 1 cap PO DAILY 06/14/23 06/19/24 History mg-1,000 mg capsule bupropion HCl 75 mg tablet 75 mg PO BID 06/08/24 06/19/24 History gabapentin 300 mg capsule 600 mg PO TID 06/08/24 06/19/24 History sodium chloride 0.65 % nasal mist 1 spray intranasal DAILY 06/08/24 06/08/24 History Patient hx anesthesia problems: none Family hx anesthesia problems: none Results Review: All pre-operative results and documents have been reviewed as part of the pre- operative evaluation. [facility] Past Medical History Medical History Tendonitis of left rotator cuff Left shoulder pain Fatty liver GERD (gastroesophageal reflux disease) Migraines Hypertension Hyperlipidemia Diabetes Surgical History Surgical History Hx of cholecystectomy H/O shoulder surgery Family History Family History Father Diabetes mellitus Mother Diabetes mellitus Unknown Hypertension Heart disease Neuropathy Arthritis Cerebrovascular accident High cholesterol Social History Social History Social History: caffeine use Smoking status: Never smoker Alcohol intake: current Alcohol use details: rare Substance use: never Substance use type: does not use Living arrangements: with family Occupation/Education: occupation 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 Informed Consent: The patient's anesthetic plan and its attendant risks and benefits were discussed with the patient/family/POA. Questions were solicited and answers provided to the satisfaction of the patient/family/POA.
[2024-06-19 07:25] VITALS: BP 132/79; PULSE 84; RESP 20; TEMP 36.7; O2SAT 100
[2024-06-19] MEDS: LACTATED RINGERS 1,000 ML 150 ML IV CONT (07:28)
--- NOTE | 2024-06-19 08:14 | PM.IMHP ---
H&P: HPI History of Present Illness Date/Time: 06/19/24 08:14 Chief Complaint: History of colon polyps Narrative: The patient has a history of colonic polyps, the last colonoscopy was last year, however he was not properly prepped. He was advised to return after a 2 day prep. Of note, the patient is a diabetic and suffers from constipation. Review of Systems Review of Systems: All systems reviewed & are unremarkable except as noted in HPI and below PMFSH Past Medical History Medical History Tendonitis of left rotator cuff Left shoulder pain Fatty liver GERD (gastroesophageal reflux disease) Migraines Hypertension Hyperlipidemia Diabetes Surgical History Surgical History Hx of cholecystectomy H/O shoulder surgery Family History Family History Father Diabetes mellitus Mother Diabetes mellitus Unknown Hypertension Heart disease Neuropathy Arthritis Cerebrovascular accident High cholesterol Social History Social History Social History: caffeine use Smoking status: Never smoker Alcohol intake: current Alcohol use details: rare Substance use: never Substance use type: does not use Living arrangements: with family Occupation/Education: occupation 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- [employer] Gender identity (if verbalized by the patient): Male Spiritual care concerns: No Meds Home Medications and Allergies Home Medications ?Medication ?Instructions ?Recorded ?Confirmed ?Type atorvastatin 40 mg tablet (Lipitor) 40 mg PO HS 11/25/19 06/19/24 History famotidine 20 mg tablet (Pepcid) 20 mg PO DAILY 11/25/19 06/19/24 History insulin glargine 100 unit/mL 30 unit subcut DAILY 11/25/19 06/19/24 History subcutaneous solution (Lantus U-100 Insulin) insulin lispro 100 unit/mL 15 unit subcut TID 11/25/19 06/19/24 History subcutaneous cartridge (Humalog U-100 Insulin) metformin 500 mg tablet 1,000 mg PO BID 02/22/23 06/19/24 History alprazolam 0.5 mg tablet 0.5 mg PO DAILY PRN Anxiety 04/04/23 06/08/24 History ferrous sulfate 325 mg (65 mg 325 mg PO DAILY 04/04/23 06/19/24 History iron) tablet tamsulosin 0.4 mg capsule 0.4 mg PO DAILY 04/04/23 06/19/24 History venlafaxine 225 mg tablet,extended 225 mg PO DAILY 04/04/23 06/19/24 History release 24 hr rzhelqt-zskccehlweciw-gbwkfcqr 250 1 tablet PO Q4-6H PRN Migraine 04/13/23 06/08/24 History mg-250 mg-65 mg tablet (Excedrin Headache Migraine) empagliflozin 25 mg tablet 25 mg PO DAILY 04/13/23 06/19/24 History (Jardiance) polyethylene glycol 3350 17 17 g PO DAILY 04/13/23 06/19/24 History gram/dose oral powder (Miralax) sumatriptan succinate 100 mg tablet 100 mg PO BID PRN Migraine Headache 04/13/23 06/08/24 History vitamin B complex 1 tablet PO DAILY 04/13/23 06/19/24 History omega-3 fatty acids-fish oil 300 1 cap PO DAILY 06/14/23 06/19/24 History mg-1,000 mg capsule bupropion HCl 75 mg tablet 75 mg PO BID 06/08/24 06/19/24 History gabapentin 300 mg capsule 600 mg PO TID 06/08/24 06/19/24 History sodium chloride 0.65 % nasal mist 1 spray intranasal DAILY 06/08/24 06/08/24 History Allergies Allergy/AdvReac Type Severity Reaction Status Date / Time No Known Allergies Allergy Verified 06/08/24 13:28 Vital Signs Vital Signs - 24 hr 06/19/24 07:25 Temperature 98.1 F Pulse Rate 84 Respiratory Rate 20 Blood Pressure 132/79 Pulse Oximetry 100 Oxygen Delivery Room Air Exam Const: General: cooperative and healthy appearing Resp: Effort & Inspection: normal respiratory effort and able to speak in complete sentences Auscultation: clear to auscultation bilaterally Cardio: Rate: regular rate Rhythm: regular rhythm GI: Inspection: normal to inspection GI Palp: No No hepatosplenomegaly present Auscultation: normal bowel sounds Rectal Exam: deferred Skin: General skin exam: normal color Psych: Appearance: grossly normal Mental Status: mental status grossly normal Assessment and Plan Assessment and plan (1) Colon cancer screening: Code(s): Z12.11 - Encounter for screening for malignant neoplasm of colon Status: Acute Assessment and Plan: The patient is deemed a good candidate for the procedure. Consent signed. Will proceed.
[2024-06-19 08:55] VITALS: BP 102/69; PULSE 75; RESP 18; O2SAT 94
--- NOTE | 2024-06-19 08:55 | SUR.PREOP ---
0645 Patient states blood sugar on Dexcom is 97.
[2024-06-19 09:05] VITALS: BP 106/67; PULSE 69; RESP 18; O2SAT 94
[2024-06-19 09:13] LABS: Glucose Point of Care 117 mg/dl (65-105)
[2024-06-19 09:14] VITALS: BP 116/74; PULSE 63; RESP 18; O2SAT 96
== END 2024-06-19 09:31 | disposition home or self-care (01) ==
PROVIDERS: PCP Internal Medicine; Referring Provider Nurse Practitioner Family; Visit Provider Internal Medicine Gastroenterology
PROC: 0DJD8ZZ Inspection of Lower Intestinal Tract, Via Natural or Artificial Opening Endoscopic (ICD-10-PCS; CPT 45378; principal; 2024-06-19 08:30)
DX: Z12.11 Encounter for screening for malignant neoplasm of colon (principal); E11.9 Type 2 diabetes mellitus without complications; K21.9 Gastro-esophageal reflux disease without esophagitis; I10 Essential (primary) hypertension; E78.5 Hyperlipidemia, unspecified; Z79.4 Long term (current) use of insulin; Z79.84 Long term (current) use of oral hypoglycemic drugs; Z79.82 Long term (current) use of aspirin; Z98.890 Other specified postprocedural states; Z90.49 Acquired absence of other specified parts of digestive tract; Z86.0100 Personal history of colon polyps, unspecified; Z82.49 Family history of ischemic heart disease and other diseases of the circulatory system
CPT/HCPCS: 45378; 82948; J2003; J2704; J7120